=== PATIENT | female | born 1945 | race Caucasian/White ===

== ENCOUNTER 2020-09-27 10:50 | Emergency (ER) | payer MEDICARE, OTHER ==
--- NOTE | 2020-09-27 11:14 | EDM.PDOC ---
ED HPI GENERAL MEDICAL PROBLEM - General Chief Complaint: Lower Extremity Injury/Pain Stated Complaint: LOST TOENAIL THIS MORN WANTS IT LOOKED AT Time Seen by Provider: 09/27/20 11:00 Source of Information: Reports: Patient, Family History Limitations: Reports: No Limitations - History of Present Illness INITIAL COMMENTS - FREE TEXT/NARRATIVE: 75-year-old female presents to the ED for evaluation of injury to her right great toe that occurred about 10 days ago. The toenail came off completely this morning with active bleeding from the nail matrix on both medial and lateral sides. She states she had an ingrown toenail and stepped in a hole outside her home 10 days ago injuring the toe and the toenail. There was extensive soft tissue bleeding into the entire toe which is just turned black at this time. She is currently on her last tablet of cephalexin 500 mg which she has been taking 3 times daily. She has active bleeding from both medial and lateral nail beds and this is the reason she came to the ED. She has an appointment with predatory animal hunter Dr. Bah tomorrow. Of note the patient is a type II diabetic and controlled with Metformin. Onset: Today (Toenail fell off today but the initial injury to the right great toe was days ago when she stepped in a hole outside her home injuring the toe with hematoma formation) Onset Date: 09/27/20 (Great toenail came off earlier this morning.) Duration: Hour(s): Location: Reports: Lower Extremity, Right (Spontaneous avulsion of right great toenail after initial injury to the right great toe 10 to 12 days ago.) Quality: Reports: Other (Oozing of blood from lateral and medial aspects of the) Severity: Mild (nail matrix.) Improves with: Reports: None Worsens with: Reports: None Context: Reports: Trauma (Suffered initial trauma to the right great toe when she stepped in a hole in her backyard about 10--12 days ago. The entire toe bled into the soft tissues and it is black in color. The toe itself appears gangrenous.). Denies: Activity, Exercise, Lifting, Sick Contact Associated Symptoms: Reports: No Other Symptoms Treatments K 12 PRINCIPAL: Reports: Acetaminophen - Related Data Allergies Allergy/AdvReac Type Severity Reaction Status Date / Time lisinopril AdvReac Mild Cough Verified 07/12/21 11:03 Home Meds: Home Meds Doxycycline [Vibra-Tabs] 100 mg PO Q12HR #20 tab 09/27/20 [Rx] Metoprolol Succinate 100 mg PO DAILY 09/27/20 [History] cephALEXin [Cephalexin] 500 mg PO QID 09/27/20 [History] hydroCHLOROthiazide [Hydrochlorothiazide] 25 mg PO DAILY 09/27/20 [History] metFORMIN [Glucophage] 1,000 mg PO DAILY 09/27/20 [History] Past Medical History HEENT History: Reports: Impaired Vision Cardiovascular History: Reports: Hypertension Endocrine/Metabolic History: Reports: Diabetes, Type II (Controlled with Metformin and diet) - Past Surgical History HEENT Surgical History: Reports: Cataract Surgery Social & Family History - Tobacco Use Tobacco Use Status *Q: Never Tobacco User Second Hand Smoke Exposure: No - Caffeine Use Caffeine Use: Reports: Coffee - Recreational Drug Use Recreational Drug Use: No - Living Situation & Occupation Living situation: Reports: Occupation: Employed Review of Systems - Review of Systems Review Of Systems: See Below Constitutional: Reports: No Symptoms Eyes: Reports: Glasses, Other (Does have retinal disease.) Ears: Reports: No Symptoms Nose: Reports: No Symptoms Mouth/Throat: Reports: No Symptoms Respiratory: Reports: No Symptoms Cardiovascular: Reports: Other (Chronic hypertension). Denies: Chest Pain GI/Abdominal: Reports: Other Genitourinary: Reports: Other (Occasional problems with constipation urinary frequency with occasional incontinence both stress and urge induced) Musculoskeletal: Reports: Neck Pain, Shoulder Pain, Back Pain, Joint Pain Skin: Reports: Bruising (Knees and hips at times.) Neurological: Reports: No Symptoms Psychiatric: Reports: No Symptoms ED EXAM, GENERAL - Physical Exam Exam: See Below Exam Limited By: No Limitations General Appearance: Alert, WD/WN, No Apparent Distress, Other (Temperature is 36.4 degrees. Heart rate 80 and sinus. Respiratory is 18 blood pressure markedly elevated at 192/84 I systolic hypertension pulse ox 98%) Eye Exam: Bilateral Eye: Normal Inspection (Mild blepharal pallor no scleral icterus.), PERRL Extremities: Other (Examination of her right great toes shows the entire toe to be dark black in color suggesting underlying gangrene. There is obvious bleeding into the soft tissues of the toe particularly distally that gives it a gangrenous appearance. The great toenail fell off this morning with some active bleedi) Neurological: Alert, Oriented, CN II-XII Intact, Normal Cognition Psychiatric: Normal Affect, Normal Mood Skin Exam: Warm, Dry, Other (Peers to be developing gangrene of the right great toe) Course - Vital Signs Last Recorded V/S: Last Vital Signs Temp 36.4 C 09/27/20 10:57 Pulse 80 09/27/20 10:57 Resp 18 09/27/20 10:57 BP 192/84 H 09/27/20 10:57 Pulse Ox 98 09/27/20 10:57 - Radiology Interpretation Free Text/Narrative:: 75-year-old female presents to the ED for evaluation of her right great toe. She states she suffered an injury to the toe about 10 days ago when she stepped in a hole in her backyard. She had an ingrown toenail at that time and partially avulsed the toenail with this injury. There was significant bleeding into the soft tissues of the toe and it is now dark black and colors giving and a gangrenous appearance. She has been placed on cephalexin 500 mg 3 times daily for the last 10 days as the last tablet today. Today the toenail fell off completely which is not unexpected. There was bleeding from the lateral medial matrices of the nail bed. These areas were cauterized with silver nitrate and she experienced no discomfort with this procedure. Bleeding was therefore controlled. It is my suggestion that she continue antibiotic therapy with doxycycline 100 mg twice daily for the next 10 days and a prescription was written in this regard. She has an appointment to see Dr. Bah the predatory animal hunter tomorrow which he was advised to keep. I suspect she is going to lose this toe eventually. Departure - Departure Time of Disposition: 11:12 Disposition: Home, Self-Care 01 Condition: Fair Clinical Impression: Avulsion of toenail of right foot - Discharge Information *PRESCRIPTION DRUG MONITORING PROGRAM REVIEWED*: Not Applicable *COPY OF PRESCRIPTION DRUG MONITORING REPORT IN PATIENT JAIME: Not Applicable Prescriptions: Doxycycline [Vibra-Tabs] 100 mg PO Q12HR #20 tab Referrals: Indigo Ta NP [Primary Care Provider] - Forms: ED Department Discharge Additional Instructions: Evaluation in the emergency room this morning in regards to complete loss of your right great toenail or avulsion of the nail. Initial injury to the toe was approximately 10 days ago when you stepped in a hole outside your home. The toe suffered blunt injury with excessive bleeding into the soft tissues of the toe. Today the toenail came off completely as 1 would anticipate from this type of injury. There was some active bleeding coming from both sides of the nail matrix. This area was cauterized with silver nitrate on both sides to control the bleeding. It is my suggestion that you continue antibiotic therapy. We will change up the antibiotics from cephalexin to doxycycline 100 mg twice daily for the next 10 days. This medication should not be taken with calcium or vitamin supplements. You could finish up your last tablet of cephalexin today and take your first dose of doxycycline tomorrow. Follow-up with Dr. Car predatory animal hunter tomorrow as planned. Sepsis Event Note (ED) - Evaluation Sepsis Screening Result: No Definite Risk - Focused Exam Vital Signs: Vital Signs Temp Pulse Resp BP Pulse Ox 09/27/20 10:57 36.4 C 80 18 192/84 H 98
== END 2020-09-27 11:36 | disposition home or self-care (01) ==
LOC: JD.ED 10:50
DX: S91.201A Unspecified open wound of right great toe with damage to nail, initial encounter (principal); I10 Essential (primary) hypertension; E11.9 Type 2 diabetes mellitus without complications; Z79.84 Long term (current) use of oral hypoglycemic drugs; Z88.8 Allergy status to other drugs, medicaments and biological substances; Z79.899 Other long term (current) drug therapy; W22.8XXA Striking against or struck by other objects, initial encounter; Y92.009 Unspecified place in unspecified non-institutional (private) residence as the place of occurrence of the external cause
CPT/HCPCS: 12001; 17250; 99283; 99283-25

== ENCOUNTER 2020-11-02 10:51 | Emergency (ER) | payer MEDICARE, OTHER ==
--- NOTE | 2020-11-02 11:43 | EDM.PDOC ---
ED HPI GENERAL MEDICAL PROBLEM - General Chief Complaint: Lower Extremity Injury/Pain Stated Complaint: RIGHT SIDE TOE POSSIBLE INFECTION Time Seen by Provider: 11/02/20 11:09 Source of Information: Reports: Patient, Family (son), RN Notes Reviewed History Limitations: Reports: No Limitations - History of Present Illness INITIAL COMMENTS - FREE TEXT/NARRATIVE: Patient is a 75-year-old female who presents to the ER for the evaluation of a possible right great toe amputation site infection. Notes that she had her right great toe amputated 2 weeks ago on October 18, 2020, by Dr. Busby at [facility]. Patient notes that she finished her ciprofloxacin antibiotics, roughly 1 week ago. She has been having help with dressing changes from her son. The son states that the redness actually seems to be going down, he has not noticed any more increasing red streaks up the foot. There is some concern about some possible tunneling of the wound. Patient's not had any fevers or chills, cough or shortness of breath, she states that the amputation site is not painful. She states that she is still walking on her heel for the most part. They do not know a marked difference that would indicate that it is infected. They are worried however that it is not healing appropriately due to her diabetic status. Primary care provider is Indigo Ta, and the patient states that her diabetes is fairly uncontrolled as far she knows. - Related Data Allergies Allergy/AdvReac Type Severity Reaction Status Date / Time codeine Allergy Severe Vomiting Verified 11/02/20 11:07 lisinopril AdvReac Severe Cough Verified 11/02/20 11:07 Home Meds: Home Meds Metoprolol Succinate 100 mg PO DAILY 09/27/20 [History] hydroCHLOROthiazide [Hydrochlorothiazide] 25 mg PO DAILY 09/27/20 [History] metFORMIN [Glucophage] 1,000 mg PO DAILY 09/27/20 [History] Amoxicillin/Clavulanate K [Augmentin 875-125 MG] 1 tab PO BID #14 tablet 11/02/20 [Rx] Past Medical History HEENT History: Reports: Impaired Vision Cardiovascular History: Reports: Hypertension Musculoskeletal History: Reports: Other (See Below) Other Musculoskeletal History: 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 placed the day beofre surgery Social & Family History - Tobacco Use Tobacco Use Status *Q: Never Tobacco User - Caffeine Use Caffeine Use: Reports: Coffee, Tea - Recreational Drug Use Recreational Drug Use: No - Living Situation & Occupation Living situation: Reports: Occupation: Employed Review of Systems - Review of Systems Review Of Systems: Comprehensive ROS is negative, except as noted in HPI. ED EXAM, GENERAL - Physical Exam Exam: See Below Exam Limited By: No Limitations General Appearance: Alert, WD/WN, No Apparent Distress Respiratory/Chest: No Respiratory Distress, Lungs Clear, Normal Breath Sounds, No Accessory Muscle Use, Chest Non-Tender Cardiovascular: Normal Peripheral Pulses, Regular Rate, Rhythm, No Edema Peripheral Pulses: 2+: Dorsalis Pedis (L), Dorsalis Pedis (R) Extremities: Non-Tender, No Pedal Edema, Normal Capillary Refill Neurological: Alert, Oriented, Normal Cognition, No Motor/Sensory Deficits Psychiatric: Normal Affect, Normal Mood Skin Exam: Warm, Dry, Normal Color, No Rash, Other (post surgical wound to R great toe, there is some surrounding erythema- pt son states that this has improved actually, there is maybe some tunneling of the wound noted, sutures still in place and there does appear to be some drainage from the wound as well) Course - Vital Signs Last Recorded V/S: Last Vital Signs Temp 98.3 F 11/02/20 11:12 Pulse 77 11/02/20 11:12 Resp 20 11/02/20 11:12 BP 175/74 H 11/02/20 11:12 Pulse Ox 98 11/02/20 11:12 - Orders/Labs/Meds Orders: Active Orders 24 hr Category Date Time Status CBC WITH AUTO DIFF [HEME] Stat Lab 11/02/20 11:32 Ordered Labs: Laboratory Tests 11/02/20 11/02/20 Range/Units 12:11 12:11 WBC 9.78 (3.98-10.04) K/mm3 RBC 4.06 (3.98-5.22) M/mm3 Hgb 11.5 (11.2-15.7) gm/dl Hct 35.6 (34.1-44.9) % MCV 87.7 (79.4-94.8) fl MCH 28.3 (25.6-32.2) pg MCHC 32.3 (32.2-35.5) g/dl RDW Std Deviation 45.2 (36.4-46.3) fL Plt Count 636 H (182-369) K/mm3 MPV 7.8 L (9.4-12.3) fl Neut % (Auto) 76.8 H (34.0-71.1) % Lymph % (Auto) 9.7 L (19.3-51.7) % Fisher % (Auto) 7.3 (4.7-12.5) % Eos % (Auto) 5.1 (0.7-5.8) Baso % (Auto) 0.9 (0.1-1.2) % Neut # (Auto) 7.51 H (1.56-6.13) K/mm3 Lymph # (Auto) 0.95 L (1.18-3.74) K/mm3 Fisher # (Auto) 0.71 H (0.24-0.36) K/mm3 Eos # (Auto) 0.50 H (0.04-0.36) K/mm3 Baso # (Auto) 0.09 H (0.01-0.08) K/mm3 Sodium 139 (136-145) mEq/L Potassium 3.8 (3.5-5.1) mEq/L Chloride 103 (98-107) mEq/L Carbon Dioxide 26 (21-32) mEq/L Anion Gap 13.8 (5-15) BUN 12 (7-18) mg/dL Creatinine 0.5 L (0.55-1.02) mg/dL Est Cr Clr Drug Dosing 79.18 mL/min Estimated GFR (MDRD) > 60 (>60) mL/min BUN/Creatinine Ratio 24.0 H (14-18) Glucose 128 H (70-99) mg/dL Calcium 8.1 L (8.5-10.1) mg/dL Total Bilirubin 0.7 (0.2-1.0) mg/dL AST 9 L (15-37) U/L ALT 12 L (14-59) U/L Alkaline Phosphatase 55 (46-116) U/L C-Reactive Protein <0.2 (<1.0) mg/dL Total Protein 6.6 (6.4-8.2) g/dl Albumin 2.8 L (3.4-5.0) g/dl Globulin 3.8 gm/dL Albumin/Globulin Ratio 0.7 L (1-2) - Re-Assessments/Exams Free Text/Narrative Re-Assessment/Exam: 11/02/20 11:31 Presents to the ER for evaluation of a suspect infection near a amputation site. Have ordered basic labs, and x-rays for evaluation. 11/02/20 12:31 Foot x-ray has been completed, there is soft tissue swelling with slight osteopenia within the distal first metatarsal suspicious for osteomyelitis with cellulitis. Other chronic stable findings appreciated, but no more acute findings. Labs are still pending at this time. Once I have some laboratory results, I will go ahead and consult the provider at [facility] in [place] that did the amputation. 11/02/20 12:57 Patient's laboratory evaluation is essentially unremarkable, CBC is within normal limits, CMP also within normal limits, CRP undetectably low at this time. I am in contact with [facility] in [place] at this time to discuss the possible early osteomyelitis and overlying cellulitis. 11/02/20 13:11 I was able to speak with the Dr. Velazco at [facility] in [place], and he was able to review the x-rays, and operative notes, and he suggested placing patient on oral antibiotics Augmentin, continue wound management as previously directed he does note that the patient has a follow-up appoint with Dr. Busby on November 09, and she should keep that appointment. I did go over these findings with the patient and they verbalized understanding at this time. Departure - Departure Time of Disposition: 13:12 Disposition: Home, Self-Care 01 Condition: Good Clinical Impression: Amputation stump infection, Cellulitis and abscess of foot - Discharge Information *PRESCRIPTION DRUG MONITORING PROGRAM REVIEWED*: No *COPY OF PRESCRIPTION DRUG MONITORING REPORT IN PATIENT JAIME: No Instructions: Cellulitis, Adult, [id number] Referrals: Indigo Ta NP [Primary Care Provider] - Forms: ED Department Discharge Additional Instructions: You were evaluated in the ER today regarding a suspected skin infection. It does appear that you have a cellulitis. Your skin was marked around the borders of the redness, if this redness should extend 2 finger widths past this initial corie, recommend you seek care for re-evaluation. X-rays were taken of the area, and are consistent with possible early infection. You were given an antibiotic, Augmentin, 1 tablet 2 times a day for 7 days please take as prescribed until the course is done or told otherwise by different provider. Please note that this antibiotic will take at least 48 hours to start working appropriately. This medication is prone to causing diarrhea, if you are not already doing so, I highly recommend you take a digestive probiotic like Florajen to help reintroduce good gut bacteria while taking antibiotics. This medication was electronically sent to the [facility] located near [facility]. You may take 500 mg Tylenol or 600 mg ibuprofen every 6 hours as needed for further pain relief. Do not exceed 4000 mg Tylenol or 3200 mg ibuprofen in a 24-hour time span. Please keep your appointment with Dr. Busby on 09 November for reevaluation and ongoing management. Do not hesitate to return to the ER at any time however if you should develop any worsening symptoms like fevers, foul-smelling drainage, or red streaks that seem to extend further up the foot/leg. Sepsis Event Note (ED) - Focused Exam Vital Signs: Vital Signs Temp Pulse Resp BP Pulse Ox 11/02/20 11:12 98.3 F 77 20 175/74 H 98 - My Orders Last 24 Hours: My Active Orders 11/02/20 11:32 CBC WITH AUTO DIFF [HEME] Stat - Assessment/Plan Last 24 Hours: My Active Orders 11/02/20 11:32 CBC WITH AUTO DIFF [HEME] Stat
--- NOTE | 2020-11-02 12:21 | CR ---
Right foot: 4 views of the right foot were obtained. Comparison: No prior foot exam is available. Prior amputation is seen within the first toe. Diffuse soft tissue swelling is noted. There is osteopenia being seen within portions of the distal aspect of the first metatarsal which are suspicious for early osteomyelitis. Plantar spur is noted. Vascular calcification is seen. No other areas of focal osteopenia or erosions are seen. Impression: 1. Soft tissue swelling with slight osteopenia within the distal first metatarsal suspicious for osteomyelitis with cellulitis. 2. Other findings as noted above which are chronic. No other acute osseous abnormality is appreciated. Diagnostic code #3
== END 2020-11-02 13:45 | disposition home or self-care (01) ==
LOC: JD.ED 10:51
DX: T87.43 Infection of amputation stump, right lower extremity (principal); L02.611 Cutaneous abscess of right foot; L03.115 Cellulitis of right lower limb; I10 Essential (primary) hypertension; E11.9 Type 2 diabetes mellitus without complications; Z88.5 Allergy status to narcotic agent; Z88.8 Allergy status to other drugs, medicaments and biological substances; Z79.84 Long term (current) use of oral hypoglycemic drugs; Z79.899 Other long term (current) drug therapy
CPT/HCPCS: 36415; 73630-26-RT; 73630-RT; 80053; 85025; 86140; 99283-25; 99284

== ENCOUNTER 2020-11-16 18:53 | Emergency (ER) | payer MEDICARE, OTHER ==
--- NOTE | 2020-11-16 19:53 | EDM.PDOC ---
ED HPI GENERAL MEDICAL PROBLEM - General Chief Complaint: Wound Recheck Stated Complaint: RT FOOT/AMPUTATED TOE/EXCESSIVE BLEEDING Time Seen by Provider: 11/16/20 19:15 Source of Information: Reports: Patient, Family History Limitations: Reports: No Limitations - History of Present Illness INITIAL COMMENTS - FREE TEXT/NARRATIVE: 75-year-old female presents the emergency department today with complaints of bleeding status post having sutures replaced and an amputated right great toe. Patient states she had her right great toe amputated about a month ago and the family has been treating the area long enough to get the skin to close so that the toy assembler wood could place sutures. , no interest, closed the amputated right great toe today with sutures in the family is concerned that her dressings are saturated with blood. Patient does take 1 baby aspirin daily and does not take any other blood thinners. She denies any other symptoms such as dizziness or shortness of breath. - Related Data Allergies Allergy/AdvReac Type Severity Reaction Status Date / Time codeine AdvReac Severe Vomiting Verified 11/16/20 19:10 lisinopril AdvReac Severe Cough Verified 11/16/20 19:10 Home Meds: Home Meds Metoprolol Succinate 100 mg PO DAILY 09/27/20 [History] hydroCHLOROthiazide [Hydrochlorothiazide] 25 mg PO DAILY 09/27/20 [History] metFORMIN [Glucophage] 1,000 mg PO DAILY 09/27/20 [History] Amoxicillin/Clavulanate K [Augmentin 875-125 MG] 1 tab PO BID #14 tablet 11/02/20 [Rx] Past Medical History HEENT History: Reports: Impaired Vision Cardiovascular History: Reports: Hypertension Musculoskeletal History: Reports: Other (See Below) Other Musculoskeletal History: 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 placed the day beofre surgery Social & Family History - Tobacco Use Tobacco Use Status *Q: Never Tobacco User Second Hand Smoke Exposure: No - Caffeine Use Caffeine Use: Reports: Coffee, Tea - Recreational Drug Use Recreational Drug Use: No - Living Situation & Occupation Living situation: Reports: Occupation: Employed Review of Systems - Review of Systems Review Of Systems: Comprehensive ROS is negative, except as noted in HPI. ED EXAM, GENERAL - Physical Exam Exam: See Below Exam Limited By: No Limitations General Appearance: Alert, WD/WN, No Apparent Distress Ears: Normal External Exam, Hearing Grossly Normal Nose: Normal Inspection Throat/Mouth: Normal Inspection, Normal Lips, Normal Voice, No Airway Compromise Head: Atraumatic Neck: Normal Inspection, Supple Respiratory/Chest: No Respiratory Distress, No Accessory Muscle Use Cardiovascular: Normal Peripheral Pulses, Regular Rate, Rhythm GI/Abdominal: No Distention (Female) Exam: Deferred Rectal (Female) Exam: Deferred Back Exam: Normal Inspection Extremities: No: Normal Inspection (amputation noted to right great toe; sutures are intact; minimal blood oozing from suture site) Neurological: Alert, Oriented, Normal Cognition Psychiatric: Normal Affect, Normal Mood Skin Exam: Warm, Dry, Normal Color, No Rash, Wound/Incision (amputation noted to right great toe; sutures are intact; minimal blood oozing from suture site). No: Intact Lymphatic: No Adenopathy Course - Vital Signs Text/Narrative:: As stated above presents with blood soaked dressing of right foot status post revision of amputation. Dressing was removed using saline to soak gauze. Suture site is pink, and clean. There is a small amount of bloody drainage noted oozing from suture site. Will apply quick clot dressing to the area and replace dressing per nursing staff. Pt will then be discharged to home. Last Recorded V/S: Last Vital Signs Temp 97.3 F 11/16/20 19:02 Pulse 83 11/16/20 19:02 Resp 16 11/16/20 19:02 BP 181/75 H 11/16/20 19:02 Pulse Ox 92 L 11/16/20 19:02 Departure - Departure Time of Disposition: 20:06 Disposition: Home, Self-Care 01 Condition: Good Clinical Impression: Post-op bleeding Qualifiers: Surgical complication system/body Area: skin Procedure type: non-dermatologic Qualified Code(s): L76.22 - Postprocedural hemorrhage of skin and subcutaneous tissue following other procedure - Discharge Information Referrals: Indigo Ta NP [Primary Care Provider] - Forms: ED Department Discharge Additional Instructions: You were seen in the ED for eval of bleeding noted to right great toe amputation. Dressing was removed and a small amount of blood was oozing from surgical incision. Quick clot was placed on the wound and this should resolve the bleeding. Follow all previous post op orders as written by Dr. Zavaleta. Return to the ED for any further problems. Sepsis Event Note (ED) - Evaluation Sepsis Screening Result: No Definite Risk - Focused Exam Vital Signs: Vital Signs Temp Pulse Resp BP Pulse Ox 11/16/20 19:02 97.3 F 83 16 181/75 H 92 L
== END 2020-11-16 20:24 | disposition home or self-care (01) ==
LOC: JD.ED 18:53
DX: L76.22 Postprocedural hemorrhage of skin and subcutaneous tissue following other procedure (principal); I10 Essential (primary) hypertension; E11.9 Type 2 diabetes mellitus without complications; Z79.84 Long term (current) use of oral hypoglycemic drugs; Z88.5 Allergy status to narcotic agent; Z88.8 Allergy status to other drugs, medicaments and biological substances; Z79.899 Other long term (current) drug therapy
CPT/HCPCS: 99282; 99283

== ENCOUNTER 2021-01-06 16:17 | Inpatient (IN) | payer MEDICARE, OTHER ==
--- NOTE | 2021-01-06 16:28 | EDM.PDOC ---
ED HPI GENERAL MEDICAL PROBLEM - General Chief Complaint: Respiratory Problem Stated Complaint: SOB Time Seen by Provider: 01/06/21 18:50 Source of Information: Reports: Patient, Provider History Limitations: Reports: No Limitations - History of Present Illness INITIAL COMMENTS - FREE TEXT/NARRATIVE: 75-year-old female presents to the ED at the request of her primary care provi jessica nurse practitioner Shreya Ta from the [facility]. Patient presented there with a 3-day history of gradually worsening dyspnea. O2 sats were 93% on initial evaluation. Chest x-ray done at the clinic revealed a large right-sided pleural effusion which apparently is new for her. Denies any history of congestive heart failure or renal failure or cancer. Patient is a type II diabetic poorly controlled with a hemoglobin A1c today of 12.1. There is no mention of cough. COVID-19 screen was negative today. Patient has had previous endarterectomy and is on Plavix 75 mg daily. White count today was 12.2 with a differential showing 80% neutrophils. Hemoglobin slightly low at 11.6 with hematocrit of 33.2. MCV is 82.4. Platelet count is 361,000. Glucose was elevated 149 with a BUN of 9 and a creatinine of 0.62. Sodium 131 with a potassium of 3.8 chloride 97 with a bicarb of 25. Cholesterol reveals hypertriglyceridemia. Gives no history of underlying malignancy or diagnosis of congestive heart failure. COVID-19 screen was done at the clinic today and was negative. Onset: Gradual Onset Date: 01/03/21 (And reports gradually worsening dyspnea over the last month but it was improved for about a week and then seemed to get much worse again over the last 3 to 4 days. She has associated orthopnea. Mild nonproductive cough no pleuritic chest pain. Dyspnea just walking from the bedroom to the bathroom.) Duration: Day(s):, Getting Worse Location: Reports: Chest (Shortness of breath on minimal exertion with orthopnea) Quality: Reports: Other (No pain in the chest.) Severity: Moderate Improves with: Reports: Rest Worsens with: Reports: Movement (Even mild movement such as walking from the bedroom to the bathroom which is 15 yards causes significant dyspnea) Context: Denies: Activity, Exercise, Lifting, Sick Contact, Trauma, Other Associated Symptoms: Reports: Cough, Malaise (Productive), Shortness of Breath, Weakness. 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: Other (see below) - Related Data Allergies Allergy/AdvReac Type Severity Reaction Status Date / Time codeine AdvReac Severe Vomiting Verified 01/06/21 16:47 lisinopril AdvReac Severe Cough Verified 01/06/21 16:47 Home Meds: Home Meds Metoprolol Succinate 100 mg PO DAILY 09/27/20 [History] hydroCHLOROthiazide [Hydrochlorothiazide] 25 mg PO DAILY 09/27/20 [History] metFORMIN [Glucophage] 1,000 mg PO DAILY 09/27/20 [History] Amoxicillin/Clavulanate K [Augmentin 875-125 MG] 1 tab PO BID #14 tablet [Rx] Past Medical History HEENT History: Reports: Impaired Vision Cardiovascular History: Reports: Hypertension Musculoskeletal History: Reports: Other (See Below) Other Musculoskeletal History: 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 Very poor diabetic control with a glycosylated hemoglobin reported today to be 12.1.Jan 06) - Past Surgical History HEENT Surgical History: Reports: Cataract Surgery Cardiovascular Surgical History: Reports: Other (See Below) Other Cardiovascular Surgeries/Procedures: stent to groin 2; pt on plavix. placed the day beofre surgery Female Surgical History: Reports: Hysterectomy, Salpingo-Oophorectomy (Bilateral), Other (See Below) (He is not sure if her appendix was removed at the time of hysterectomy) Social & Family History - Caffeine Use Caffeine Use: Reports: Coffee, Tea - Living Situation & Occupation Living situation: Reports: Occupation: Employed [employer] - Review of Systems Review Of Systems: See Below Constitutional: Reports: Malaise, Fatigue, Decreased Appetite, Weight Loss. Denies: Fever, Chills HEENT: Reports: Glasses Respiratory: Reports: Shortness of Breath, Cough. Denies: Wheezing, Pleuritic Chest Pain, Sputum, Hemoptysis, Other (Nonproductive) Cardiovascular: Reports: Blood Pressure Problem, Dyspnea on Exertion (Markedly worse in the last week), Edema (Increased edema lower extremities recently worse). Denies: Chest Pain, Claudication, Lightheadedness, Orthopnea Endocrine: Reports: Fatigue GI/Abdominal: Reports: Constipation (Mild constipation), Decreased Appetite. Denies: Abdominal Pain : Reports: Frequency Musculoskeletal: Reports: Back Pain, Joint Pain (Mild arthritis knees hips low back and neck at times) Skin: Reports: No Symptoms Neurological: Reports: No Symptoms Psychiatric: Reports: No Symptoms Hematologic/Lymphatic: Reports: No Symptoms Immunologic: Reports: No Symptoms ED EXAM, GENERAL - Physical Exam Exam: See Below Exam Limited By: No Limitations General Appearance: Alert, WD/WN, Mild Distress, Thin, Other (Looks unwell. Temperature is 36.6. Heart rate 91 and sinus respiratory is 20 with O2 sats of 92% room air. BP is 180/86) Eye Exam: Bilateral Eye: Normal Inspection (Mild blepharal pallor appreciated. No scleral icterus), PERRL Throat/Mouth: Normal Inspection, Normal Lips, Normal Oropharynx Head: Atraumatic, Normocephalic Neck: Normal Inspection, Supple, Non-Tender, Full Range of Motion. No: Carotid Bruit, Lymphadenopathy (L), Lymphadenopathy (R) Respiratory/Chest: Respiratory Distress, Decreased Breath Sounds (Decreased breath sounds throughout the right lung field with dullness to percussion posteriorly. Air entry to the left lung is normal.). No: Normal Breath Sounds (Mild tachypnea.), Rales, Rhonchi, Wheezing Cardiovascular: Regular Rate, Rhythm, No Gallop, No Murmur, No Rub. No: Normal Peripheral Pulses, No Edema Peripheral Pulses: 1+: Posterior Tibial (L), Posterior Tibial (R), Dorsalis Pedis (L), Dorsalis Pedis (R), 2+: Carotid (L), Carotid (R) GI/Abdominal: Normal Bowel Sounds, Soft, Non-Tender, No Organomegaly, No Mass, Pelvis Stable, Distended (Mildly distended tympany to percussion upper abdomen) Back Exam: Other (Mild kyphosis thoracic spine) Extremities: Pedal Edema (2-3+ pitting edema mid to lower leg bilaterally.) Neurological: Alert, Oriented, CN II-XII Intact, Normal Cognition Psychiatric: Normal Affect, Normal Mood Skin Exam: Warm, Dry, Intact, Normal Color, No Rash #1 Interpretation EKG Date: 01/06/21 Time: 20:55 Rhythm: NSR Rate (Beats/Min): 94 Douglas: Normal P-Wave: Enlarged (Left atrial hypertrophy pattern) QRS: Other (Q waves present in leads V1 and V2 compared with old anteroseptal myocardial infarction) ST-T: Other (There is ST segment depression versus diffuse repolarization abnormality apparently in V4 to V6 also apparent in leads I beats to and aVF. There is decreased voltage in the limb leads.) QT: Normal EKG Interpretation Comments: Abnormal ECG Course - Vital Signs Last Recorded V/S: Last Vital Signs Temp 36.6 C 01/06/21 16:40 Pulse 91 01/06/21 16:40 Resp 20 01/06/21 16:40 BP 180/86 H 01/06/21 16:40 Pulse Ox 92 L 01/06/21 16:40 - Orders/Labs/Meds Orders: Active Orders 24 hr Category Date Time Status EKG Documentation Completion [RC] STAT Care 01/06/21 20:45 Active Oxygen Therapy [RC] ASDIRECTED Care 01/06/21 17:03 Active Peripheral IV Care [RC] . DIRECTED Care 01/06/21 16:49 Active Chest Abdomen Pelvis w Cont [CT] Stat Exams 01/06/21 19:30 Taken CELL COUNT,BODY FLUID [BF] Stat Lab 01/06/21 19:05 Results GLUCOSE,BODY FLUID [BF] Stat Lab 01/06/21 19:05 Received GRAM STAIN [RM] Stat Lab 01/06/21 19:05 Received PROTEIN,BODY FLUID [BF] Stat Lab 01/06/21 19:05 Received Furosemide [Lasix] Med 01/06/21 20:30 Active 40 mg IVPUSH DAILY Sodium Chloride 0.9% [Normal Saline] 1,000 ml Med 01/06/21 20:30 Active IV ASDIRECTED Sodium Chloride 0.9% [Saline Flush] Med 01/06/21 16:49 Active 10 ml FLUSH ASDIRECTED PRN Peripheral IV Insertion Adult [OM.PC] Stat Oth 01/06/21 16:49 Ordered Medication Orders Furosemide (Furosemide 40 Mg/4 Ml Vial) 40 mg IVPUSH DAILY JENNY Sodium Chloride (Normal Saline) 1,000 mls @ 50 mls/hr IV ASDIRECTED JENNY Sodium Chloride (Sodium Chloride 0.9% 10 Ml Syringe) 10 ml FLUSH ASDIRECTED PRN PRN Reason: Keep Vein Open Last Admin: 01/06/21 18:48 Dose: 10 ml Documented by: YELENA Labs: Laboratory Tests 01/06/21 01/06/21 01/06/21 Range/Units 18:24 19:00 19:00 WBC 9.90 (3.98-10.04) K/mm3 RBC 5.15 (3.98-5.22) M/mm3 Hgb 13.6 D (11.2-15.7) gm/dl Hct 40.3 (34.1-44.9) % MCV 78.3 L D (79.4-94.8) fl MCH 26.4 (25.6-32.2) pg MCHC 33.7 (32.2-35.5) g/dl RDW Std Deviation 42.0 (36.4-46.3) fL Plt Count 837 H D (182-369) K/mm3 MPV 7.8 L (9.4-12.3) fl Neut % (Auto) 80.2 H (34.0-71.1) % Lymph % (Auto) 9.2 L (19.3-51.7) % [place] % (Auto) 8.5 (4.7-12.5) % Eos % (Auto) 1.3 (0.7-5.8) Baso % (Auto) 0.6 (0.1-1.2) % Neut # (Auto) 7.94 H (1.56-6.13) K/mm3 Lymph # (Auto) 0.91 L (1.18-3.74) K/mm3 [place] # (Auto) 0.84 H (0.24-0.36) K/mm3 Eos # (Auto) 0.13 (0.04-0.36) K/mm3 Baso # (Auto) 0.06 (0.01-0.08) K/mm3 Manual Slide Review Abnormal smear PT (9.7-12.0) SECONDS INR APTT (21.7-31.4) SECONDS Sodium 127 L D (136-145) mEq/L Potassium 3.4 L (3.5-5.1) mEq/L Chloride 91 L D (98-107) mEq/L Carbon Dioxide 29 (21-32) mEq/L Anion Gap 10.4 (5-15) BUN 9 (7-18) mg/dL Creatinine 0.4 L (0.55-1.02) mg/dL Est Cr Clr Drug Dosing 109.67 mL/min Estimated GFR (MDRD) > 60 (>60) mL/min BUN/Creatinine Ratio 22.5 H (14-18) Glucose 142 H (70-99) mg/dL Calcium 8.8 (8.5-10.1) mg/dL Magnesium 1.5 L (1.8-2.4) mg/dL Total Bilirubin 0.6 (0.2-1.0) mg/dL AST 13 L (15-37) U/L ALT 18 (14-59) U/L Alkaline Phosphatase 103 (46-116) U/L Troponin I < 0.017 (0.00-0.056) ng/mL C-Reactive Protein 1.0 (<1.0) mg/dL NT-Pro-B Natriuret Pep 7127 H (0-450) pg/mL Total Protein 6.8 (6.4-8.2) g/dl Albumin 3.0 L (3.4-5.0) g/dl Globulin 3.8 gm/dL Albumin/Globulin Ratio 0.8 L (1-2) Lipase (73-393) U/L Body Fluid Site Fluid Volume ML Fluid Color Fluid Appearance Fluid WBC (0.20-0.60) k/mm*3 Fluid RBC (0.00-0.010) 10*6/uL 01/06/21 01/06/21 01/06/21 Range/Units 19:00 19:00 19:05 WBC (3.98-10.04) K/mm3 RBC (3.98-5.22) M/mm3 Hgb (11.2-15.7) gm/dl Hct (34.1-44.9) % MCV (79.4-94.8) fl MCH (25.6-32.2) pg MCHC (32.2-35.5) g/dl RDW Std Deviation (36.4-46.3) fL Plt Count (182-369) K/mm3 MPV (9.4-12.3) fl Neut % (Auto) (34.0-71.1) % Lymph % (Auto) (19.3-51.7) % [place] % (Auto) (4.7-12.5) % Eos % (Auto) (0.7-5.8) Baso % (Auto) (0.1-1.2) % Neut # (Auto) (1.56-6.13) K/mm3 Lymph # (Auto) (1.18-3.74) K/mm3 [place] # (Auto) (0.24-0.36) K/mm3 Eos # (Auto) (0.04-0.36) K/mm3 Baso # (Auto) (0.01-0.08) K/mm3 Manual Slide Review PT 11.8 (9.7-12.0) SECONDS INR 1.07 APTT 26.8 (21.7-31.4) SECONDS Sodium (136-145) mEq/L Potassium (3.5-5.1) mEq/L Chloride (98-107) mEq/L Carbon Dioxide (21-32) mEq/L Anion Gap (5-15) BUN (7-18) mg/dL Creatinine (0.55-1.02) mg/dL Est Cr Clr Drug Dosing mL/min Estimated GFR (MDRD) (>60) mL/min BUN/Creatinine Ratio (14-18) Glucose (70-99) mg/dL Calcium (8.5-10.1) mg/dL Magnesium (1.8-2.4) mg/dL Total Bilirubin (0.2-1.0) mg/dL AST (15-37) U/L ALT (14-59) U/L Alkaline Phosphatase (46-116) U/L Troponin I (0.00-0.056) ng/mL C-Reactive Protein (<1.0) mg/dL NT-Pro-B Natriuret Pep (0-450) pg/mL Total Protein (6.4-8.2) g/dl Albumin (3.4-5.0) g/dl Globulin gm/dL Albumin/Globulin Ratio (1-2) Lipase 74 (73-393) U/L Body Fluid Site Pleural fluid Fluid Volume 24 ML Fluid Color Yellow Fluid Appearance Clear Fluid WBC 0.30 (0.20-0.60) k/mm*3 Fluid RBC (0.00-0.010) 10*6/uL Meds: Medications Generic Name Dose Route Start Last Admin Trade Name Freq PRN Reason Stop Dose Admin Furosemide 40 mg 01/06/21 20:30 Furosemide 40 Mg/4 Ml Vial IVPUSH DAILY JENNY Sodium Chloride 1,000 mls @ 50 mls/hr 01/06/21 20:30 Normal Saline IV ASDIRECTED JENNY Sodium Chloride 10 ml 01/06/21 16:49 01/06/21 18:48 Sodium Chloride 0.9% 10 Ml Syringe FLUSH 10 ml ASDIRECTED PRN Administration Keep Vein Open Discontinued Medications Generic Name Dose Route Start Last Admin Trade Name Freq PRN Reason Stop Dose Admin Fentanyl 50 mcg 01/06/21 18:25 01/06/21 18:40 Fentanyl 100 Mcg/2 Ml Sdv IVPUSH 01/06/21 18:26 25 mcg ONETIME ONE Administration Iopamidol 100 ml 01/06/21 20:11 01/06/21 20:12 Iopamidol 612 Mg/Ml 100 Ml Bottle IVPUSH 01/06/21 20:12 100 ml ONETIME ONE Administration Iopamidol 25 ml 01/06/21 20:11 01/06/21 20:12 Iopamidol 612 Mg/Ml 50 Ml Sdv IVPUSH 01/06/21 20:12 25 ml ONETIME ONE Administration Lidocaine/Epinephrine 20 ml 01/06/21 17:07 01/06/21 18:45 Lidocaine 1% With Epinephrine 1:100,000 20 Ml Mdv INJECT 01/06/21 17:08 20 ml ONETIME ONE Administration Midazolam HCl 1 mg 01/06/21 18:26 01/06/21 18:37 Midazolam 1 Mg/Ml 2 Ml Sdv IVPUSH 01/06/21 18:27 1 mg ONETIME ONE Administration Sodium Chloride 10 ml 01/06/21 20:11 01/06/21 20:12 Sodium Chloride 0.9% 10 Ml Syringe FLUSH 01/06/21 20:12 10 ml ONETIME ONE Administration - Radiology Interpretation Free Text/Narrative:: 75-year-old female presents to the ED at the request of her primary care provider due to discovery of a large right-sided pleural effusion on chest x-ray today. Patient presented to the clinic due to increased dyspnea over the last 3 to 4 days. Perhaps even longer. It has become much worse over the last 3 days with associated orthopnea. Nonproductive cough. Patient is quite frail. Exam confirms dullness to percussion right posterior lung field due to a large pleural effusion. She has no history of known cancer. She is known peripheral vascular disease having had stents placed at both femoral arteries in the past. She is on Plavix because of this. Plan she will have a saline lock started other labs to be done including a BNP serum magnesium and lipase. It appears due to her proxy is she is going to require thoracentesis. At present there is no beds available in our hospital. - Re-Assessments/Exams Free Text/Narrative Re-Assessment/Exam: 01/06/21 18:50: Right-sided thoracentesis has been performed with removal of approximately 2000 mils of slightly yellow annmarie-colored fluid compatible with a pleural effusion. It will be sent for cytology as well as Gram stain and culture. Patient tolerated the procedure very well. She will have CT scan of the chest abdomen and pelvis performed when she is feeling better to look for an occult malignancy in the abdomen or chest. 01/06/21 20:22 Total white count is 9.90 with a 80% neutrophil count on the auto differential. Hemoglobin is 13.6 with hematocrit of 40.3. MCV is 78.3. Platelet count 837,000 which is markedly elevated and suggestive of underlying malignancy. Sodium is low at 127 with potassium of 3.4. Chloride 91 with a bicarb of 29. Anion gap is 10.4. BUN is 9 with a creatinine of 0.4 and a GFR greater than 60. Glucose is 142 calcium is 8.8 magnesium is 1.5 lightly low. Liver function is normal troponin I is less than 0.017. C-reactive protein is 1.0 BNP is 7127. Total protein is 6.8 with an albumin fraction low at 3.0. Serum lipase normal at 74 01/06/21 20:38 formal reading of the CT of her chest abdomen pelvis is not yet available by radiology. On my evaluation she has mild cardiomegaly. Mediastinum appears normal. She does have bilateral pleural effusion slightly worse on the right side as compared to the left. The right lung on lung window studies still shows that it is full of fluid within the parenchyma of the lung explaining why she remains hypoxic. There is trace pneumothorax on the right side postthoracentesis. CT of the abdomen with IV contrast reveals the liver to have an abnormality in the right lower lobe at the tip. Could also represent an infarction. However this most likely represents a hemangioma which is benign. Gallbladder is present and contains no obvious calcified gallstones. Pancreas is atrophic and appears to be normal. Spleen appears normal. Stomach appears normal. Both kidneys are atrophic. Adrenal glands appear to be within normal limits. Bowel contains scattered amount of stool uterus and ovaries are absent. Appendix was not visualized. No obvious fluid within the pelvis. Case discussed with on-call hospitalist Dr. Wallace and the patient will be therefore admitted to the hospital for management of suspect congestive heart failure. I will going to place her on IV normal saline at 50 mils an hour to help correct her hyponatremia. She will be given Lasix 40 mg IV to begin diuresis to help correct congestive heart failure. Her hemoglobin A1c was 12.1 indicating her blood sugars are very poorly controlled on current Metformin 1 g once daily. She may well need to switch to insulin or other medications to control blood sugars. Bridge orders will be written for by me for overnight management. Status is full code or level 1. Departure - Departure Time of Disposition: 20:43 Disposition: Admitted As Inpatient 65 Condition: Fair Clinical Impression: Pleural effusion, right, Pleural effusion, left, Hypoxia, Lesion of right lobe of liver, Thrombocytosis Acute exacerbation of congestive heart failure Qualifiers: Heart failure type: unspecified Qualified Code(s): I50.9 - Heart failure, unspecified - Discharge Information *PRESCRIPTION DRUG MONITORING PROGRAM REVIEWED*: Not Applicable *COPY OF PRESCRIPTION DRUG MONITORING REPORT IN PATIENT JAIME: Not Applicable Referrals: Indigo Ta NP [Primary Care Provider] - Forms: ED Department Discharge Sepsis Event Note (ED) - Focused Exam Vital Signs: Vital Signs Temp Pulse Resp BP Pulse Ox 01/06/21 16:40 36.6 C 91 20 180/86 H 92 L - My Orders Last 24 Hours: My Active Orders 01/06/21 16:49 Peripheral IV Care [RC] . DIRECTED Sodium Chloride 0.9% [Saline Flush] 10 ml FLUSH ASDIRECTED PRN Peripheral IV Insertion Adult [OM.PC] Stat 01/06/21 17:03 Oxygen Therapy [RC] ASDIRECTED 01/06/21 19:05 CELL COUNT,BODY FLUID [BF] Stat GLUCOSE,BODY FLUID [BF] Stat GRAM STAIN [RM] Stat PROTEIN,BODY FLUID [BF] Stat 01/06/21 19:30 Chest Abdomen Pelvis w Cont [CT] Stat 01/06/21 20:30 Furosemide [Lasix] 40 mg IVPUSH DAILY Sodium Chloride 0.9% [Normal Saline] 1,000 ml IV ASDIRECTED 01/06/21 20:45 EKG Documentation Completion [RC] STAT - Assessment/Plan Last 24 Hours: My Active Orders 01/06/21 16:49 Peripheral IV Care [RC] . DIRECTED Sodium Chloride 0.9% [Saline Flush] 10 ml FLUSH ASDIRECTED PRN Peripheral IV Insertion Adult [OM.PC] Stat 01/06/21 17:03 Oxygen Therapy [RC] ASDIRECTED 01/06/21 19:05 CELL COUNT,BODY FLUID [BF] Stat GLUCOSE,BODY FLUID [BF] Stat GRAM STAIN [RM] Stat PROTEIN,BODY FLUID [BF] Stat 01/06/21 19:30 Chest Abdomen Pelvis w Cont [CT] Stat 01/06/21 20:30 Furosemide [Lasix] 40 mg IVPUSH DAILY Sodium Chloride 0.9% [Normal Saline] 1,000 ml IV ASDIRECTED 01/06/21 20:45 EKG Documentation Completion [RC] STAT Thoracentesis - Thoracentesis Thoracentesis Indication: pleural effusion Location: Right Skin prep: CDC/MBT Guidelines, Sterile Drapes, Chlorhexidine Ultrasound guided: No Local anesthesia: other (Lidocaine 1% with epinephrine) Local anesthesia volume: 10cc Number of Attempts: 1 Device Used: 8 Fr kit device Fluid: yellow Aspirated volume (mls): 2,000 Fluids sent: gram stain and culture, cell count, protein, glucose, cytology
[2021-01-06] MEDS ORDERED: Sodium Chloride 0.9% 10 ML Syringe FLUSH PRN (16:49)
[2021-01-06] MEDS ORDERED: Lidocaine 1% with EPINEPHrine 1:100,000 20 ML MDV INJECT ONE (17:07)
[2021-01-06] MEDS ORDERED: fentaNYL 100 MCG/2 ML SDV IVPUSH ONE (18:25)
[2021-01-06] MEDS ORDERED: Midazolam 1 MG/ML 2 ML SDV IVPUSH ONE (18:26)
[2021-01-06] MEDS ORDERED: Sodium Chloride 0.9% 10 ML Syringe FLUSH ONE (20:11)
[2021-01-06] MEDS ORDERED: Iopamidol 612 MG/ML 100 ML Bottle IVPUSH ONE (20:11)
[2021-01-06] MEDS ORDERED: Iopamidol 612 MG/ML 50 ML SDV IVPUSH ONE (20:11)
[2021-01-06] MEDS ORDERED: Sodium Chloride 0.9% 1,000 ML IV SCH ×2 (20:30→22:15)
[2021-01-06] MEDS: Furosemide 40 MG/4 ML VIAL IVPUSH SCH (21:08)
--- NOTE | 2021-01-07 07:11 | CT ---
CT chest Technique: Multiple axial sections were obtained from above the lung apices inferiorly through the lung bases. Intravenous contrast was utilized. Reconstructed coronal and sagittal images were obtained. Comparison: No prior chest imaging is available. Findings: Patchy areas of increased density are seen within the right lower lung, right middle lobe and right upper lobe. Left lung shows no acute parenchymal change. Moderate sized bilateral pleural effusions are noted. Minimal air is seen within the pleural space anteriorly within the right lung base. Very minimal emphysematous change is noted. Scattered mediastinal lymph nodes are seen which are felt to be within normal limits. No axillary adenopathy is seen. No hilar adenopathy is seen. No pericardial thickening is seen. Bone window settings were reviewed which show no acute osseous abnormality. Impression: 1. Moderate bilateral pleural effusions. 2. Patchy increased density within the right lower lung, right middle lobe and right upper lung presumably due to diffuse pneumonia. 3. Very minimal pneumothorax is noted anteriorly within the right lung base. 4. No additional abnormality is appreciated. Diagnostic code #3 I agree with preliminary report from [facility], finalized on 01/06/21, 10:00 PM CDT, code 1 CT abdomen and pelvis Technique: Multiple axial sections were obtained from above the dome of the diaphragm inferiorly through the pubic symphysis. Intravenous contrast was utilized. No oral contrast has been given. Two delayed images were also obtained. Reconstructed coronal and sagittal images were also obtained. Comparison: No prior abdominal or pelvic imaging is available. Findings: Very minimal low density lesion is seen within the upper right lobe of the liver measuring 2 mm. Smaller nodule is also noted next to the gallbladder measuring 4 mm. These are most likely due to small cysts. Abnormality is identified inferiorly within the right lobe of the liver measuring about 3.1 cm which has the appearance of a hemangioma. Small abnormality is noted within the gallbladder measuring 5 mm. This could represent a noncalcified gallstone or gallbladder polyp. Spleen size is normal. Adrenal glands show no nodule. Kidneys show symmetric contrast enhancement. No hydronephrosis or mass is seen. Delayed images show contrast within the ureters and within the bladder. Pancreas shows no discrete abnormality. Aorta shows diffuse atherosclerotic calcification which continues into the iliac vessels. No aneurysm is seen. No retroperitoneal adenopathy or mesenteric abnormalities are seen. Small amount of fluid is seen within the pelvis. Minimal diverticuli are seen within the sigmoid colon. Appendix is not visualized with certainty. No inflammatory change is seen. Bone window settings were reviewed which show scoliosis within the spine. Mild degenerative change is also noted within the spine. Impression: 1. Liver findings as noted above which are most likely incidental. 2. Minimal fluid within the pelvis. 3. Other findings as noted above which are felt to be chronic. Nothing acute is otherwise seen on CT study of the abdomen and pelvis. Diagnostic code #2 I agree with preliminary report from [facility], finalized on 01/06/21, 10:00 PM CDT, code 1
[2021-01-07] MEDS: Metoprolol Succinate 50 MG Tab.ER PO SCH (08:33)
[2021-01-07] MEDS: Furosemide 40 MG/4 ML VIAL IVPUSH SCH ×2 (08:34→15:09)
--- NOTE | 2021-01-07 08:49 | PCM.HP.2 ---
H&P History of Present Illness - General Date of Service: 01/07/21 Admit Problem/Dx: Admission Diagnosis/Problem Admission Diagnosis/Problem Pleural effusion - History of Present Illness Initial Comments - Free Text/Narative: 75-year-old poor historian presents to the emergency department last night after being seen at her primary care provider's office, Shreya Ta, with worsening shortness of breath. Patient was diagnosed with COVID-19 pneumonia approximately 3 weeks ago and started on O2. She was on 2 L via nasal cannula and her oxygen saturations were dropping into the 70s. Patient was found to hav e a large right-sided pleural effusion and was sent to the emergency department. When she was initially seen in the ER her oxygen saturations were approximately 93%. Patient states that she has never had an effusion in the past and has no history of heart disease or failure. She does have type 2 diabetes, insulin- dependent. She is on Metformin 1000 mg twice daily. In the emergency department her COVID-19 screen was negative. She did have the right sided pleural effusion tapped removing approximately 2000 mL of slightly yellow, annmarie-colored fluid. This was sent for Gram stain which was negative and cytology. Of note her BNP was 7127. CT of the chest was performed following thoracentesis. Impression showed continued bilateral moderate pleural effusions. Patchy increased density within the right lower lung, right middle lobe, and right upper lung presumably due to diffuse pneumonia. Very minimal pneumothorax noted anteriorly within the right lung base. CT scan of the abdomen pelvis showed a very minimal low density lesion seen within the upper right lobe of the liver measuring 2 mm. Small nodule is also noted next to the gallbladder measuring 4 mm. These are likely simple cysts. Another lesion that looks like a hemangioma measuring 3.1 cm in the right lobe of the liver. Minimal fluid within the pelvis. It was felt patient would benefit from hospitalization and further work-up and treatment of her congestive heart failure. She was given Lasix 40 mg IV in the emergency department and started on normal saline secondary to her hyponatremia of 127. Patient also states that she has a stent in her right leg and amputation on the same side sometime in the first week of November. - Related Data Allergies/Adverse Reactions: Allergies Allergy/AdvReac Type Severity Reaction Status Date / Time codeine AdvReac Intermediate Vomiting Verified 01/07/21 12:04 lisinopril AdvReac Mild Cough Verified 01/07/21 12:04 Home Medications: Home Meds metFORMIN [Glucophage] 1,000 mg PO BID 09/27/20 [History] Acetaminophen 325 mg PO Q6H PRN 01/06/21 [History] Cinnamon Bark [Cinnamon] 500 mg PO DAILY 01/06/21 [History] EPINEPHrine [Epinephrine] 0.3 mg IM ASDIRECTED PRN 01/06/21 [History] Glucosam/Chond/Collagen/Hyalur [Glucosamine Chondroitin] 1 each PO DAILY 01/06/21 [History] Magnesium Oxide 400 mg PO DAILY 01/06/21 [History] Metoprolol Succinate 100 mg PO BEDTIME 01/06/21 [History] Potassium Gluconate [Potassium] 99 mg PO DAILY 01/06/21 [History] Rosuvastatin [Crestor] 5 mg PO DAILY 01/06/21 [History] Ubidecarenone [Co Q-10] 100 mg PO DAILY 01/06/21 [History] Vitamin B Complex 1 each PO DAILY 01/06/21 [History] Vitamin E 1,000 unit PO DAILY 01/06/21 [History] hydroCHLOROthiazide [Hydrochlorothiazide] 25 mg PO BEDTIME 01/06/21 [History] Past Medical History HEENT History: Reports: Impaired Vision Cardiovascular History: Reports: Hypertension PLASTICS NURSE History: Reports: Musculoskeletal History: Reports: Other (See Below) Other Musculoskeletal History: 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 placed the day beofre surgery Female Surgical History: Reports: Hysterectomy, Salpingo-Oophorectomy, Other (See Below) Social & Family History - Family History Family Medical History: No Pertinent Family History - Tobacco Use Tobacco Use Status *Q: Never Tobacco User Second Hand Smoke Exposure: No - Caffeine Use Caffeine Use: Reports: Coffee - Recreational Drug Use Recreational Drug Use: No - Living Situation & Occupation Living situation: Reports: Occupation: Employed H&P Review of Systems - Review of Systems: Review Of Systems: Comprehensive ROS is negative, except as noted in HPI. Exam - Exam Exam: See Below - Vital Signs Vital Signs: Last Vital Signs Temp 97.9 F 01/07/21 06:19 Pulse 84 01/07/21 08:33 Resp 20 01/07/21 06:19 BP 130/63 01/07/21 08:33 Pulse Ox 94 L 01/07/21 06:19 Weight: 132 lb 14.4 oz - Exam Quality Assessment: Supplemental Oxygen General: Alert, Oriented, 4 HEENT: Conjunctiva Clear, Mucosa Moist & Reasnor, Normal Nasal Septum Neck: Supple, Trachea Midline, 2 Lungs: Decreased Breath Sounds (Bilateral bases, worse on the right side), Crackles (Throughout both lung ornelas) Cardiovascular: Regular Rate, Regular Rhythm, Normal S1, Normal S2 GI/Abdominal Exam: Normal Bowel Sounds, Soft, Non-Tender, No Organomegaly, No Distention, No Abnormal Bruit, No Mass Extremities: Normal Inspection, Non-Tender, Normal Capillary Refill, Pedal Edema (1-2+ bilaterally) Skin: Warm, Dry, Intact Neuro Extensive - Mental Status: Alert, Oriented x3, Normal Mood/Affect, Normal Cognition, Memory Intact Neuro Extensive - Motor, Sensory, Reflexes: CN II-XII Intact Psychiatric: Alert, Normal Affect, Normal Mood - Patient Data Lab Results Last 24 hrs: Laboratory Results - last 24 hr 01/06/21 01/06/21 01/06/21 Range/Units 18:24 19:00 19:00 WBC 9.90 (3.98-10.04) K/mm3 RBC 5.15 (3.98-5.22) M/mm3 Hgb 13.6 D (11.2-15.7) gm/dl Hct 40.3 (34.1-44.9) % MCV 78.3 L D (79.4-94.8) fl MCH 26.4 (25.6-32.2) pg MCHC 33.7 (32.2-35.5) g/dl RDW Std Deviation 42.0 (36.4-46.3) fL Plt Count 837 H D (182-369) K/mm3 MPV 7.8 L (9.4-12.3) fl Neut % (Auto) 80.2 H (34.0-71.1) % Lymph % (Auto) 9.2 L (19.3-51.7) % Payette % (Auto) 8.5 (4.7-12.5) % Eos % (Auto) 1.3 (0.7-5.8) Baso % (Auto) 0.6 (0.1-1.2) % Neut # (Auto) 7.94 H (1.56-6.13) K/mm3 Lymph # (Auto) 0.91 L (1.18-3.74) K/mm3 Payette # (Auto) 0.84 H (0.24-0.36) K/mm3 Eos # (Auto) 0.13 (0.04-0.36) K/mm3 Baso # (Auto) 0.06 (0.01-0.08) K/mm3 Manual Slide Review Abnormal smear PT (9.7-12.0) SECONDS INR APTT (21.7-31.4) SECONDS Sodium 127 L D (136-145) mEq/L Potassium 3.4 L (3.5-5.1) mEq/L Chloride 91 L D (98-107) mEq/L Carbon Dioxide 29 (21-32) mEq/L Anion Gap 10.4 (5-15) BUN 9 (7-18) mg/dL Creatinine 0.4 L (0.55-1.02) mg/dL Est Cr Clr Drug Dosing 109.67 mL/min Estimated GFR (MDRD) > 60 (>60) mL/min BUN/Creatinine Ratio 22.5 H (14-18) Glucose 142 H (70-99) mg/dL POC Glucose (70-99) mg/dL Calcium 8.8 (8.5-10.1) mg/dL Magnesium 1.5 L (1.8-2.4) mg/dL Total Bilirubin 0.6 (0.2-1.0) mg/dL AST 13 L (15-37) U/L ALT 18 (14-59) U/L Alkaline Phosphatase 103 (46-116) U/L Troponin I < 0.017 (0.00-0.056) ng/mL C-Reactive Protein 1.0 (<1.0) mg/dL NT-Pro-B Natriuret Pep 7127 H (0-450) pg/mL Total Protein 6.8 (6.4-8.2) g/dl Albumin 3.0 L (3.4-5.0) g/dl Globulin 3.8 gm/dL Albumin/Globulin Ratio 0.8 L (1-2) Lipase (73-393) U/L Body Fluid Site Fluid Type Fluid Volume ML Fluid Color Fluid Appearance Fluid WBC (0.20-0.60) k/mm*3 Fluid RBC (0.00-0.010) 10*6/uL Fluid Seg Neutrophils (0-25) % Fluid Lymphocytes (0-78) % Fluid Monocytes (0-71) % Fluid Macrophages Fluid Glucose mg/dL Fluid Total Protein gm/dl 01/06/21 01/06/21 01/06/21 Range/Units 19:00 19:00 19:05 WBC (3.98-10.04) K/mm3 RBC (3.98-5.22) M/mm3 Hgb (11.2-15.7) gm/dl Hct (34.1-44.9) % MCV (79.4-94.8) fl MCH (25.6-32.2) pg MCHC (32.2-35.5) g/dl RDW Std Deviation (36.4-46.3) fL Plt Count (182-369) K/mm3 MPV (9.4-12.3) fl Neut % (Auto) (34.0-71.1) % Lymph % (Auto) (19.3-51.7) % Payette % (Auto) (4.7-12.5) % Eos % (Auto) (0.7-5.8) Baso % (Auto) (0.1-1.2) % Neut # (Auto) (1.56-6.13) K/mm3 Lymph # (Auto) (1.18-3.74) K/mm3 Payette # (Auto) (0.24-0.36) K/mm3 Eos # (Auto) (0.04-0.36) K/mm3 Baso # (Auto) (0.01-0.08) K/mm3 Manual Slide Review PT 11.8 (9.7-12.0) SECONDS INR 1.07 APTT 26.8 (21.7-31.4) SECONDS Sodium (136-145) mEq/L Potassium (3.5-5.1) mEq/L Chloride (98-107) mEq/L Carbon Dioxide (21-32) mEq/L Anion Gap (5-15) BUN (7-18) mg/dL Creatinine (0.55-1.02) mg/dL Est Cr Clr Drug Dosing mL/min Estimated GFR (MDRD) (>60) mL/min BUN/Creatinine Ratio (14-18) Glucose (70-99) mg/dL POC Glucose (70-99) mg/dL Calcium (8.5-10.1) mg/dL Magnesium (1.8-2.4) mg/dL Total Bilirubin (0.2-1.0) mg/dL AST (15-37) U/L ALT (14-59) U/L Alkaline Phosphatase (46-116) U/L Troponin I (0.00-0.056) ng/mL C-Reactive Protein (<1.0) mg/dL NT-Pro-B Natriuret Pep (0-450) pg/mL Total Protein (6.4-8.2) g/dl Albumin (3.4-5.0) g/dl Globulin gm/dL Albumin/Globulin Ratio (1-2) Lipase 74 (73-393) U/L Body Fluid Site Fluid Type Pleural fluid Fluid Volume ML Fluid Color Fluid Appearance Fluid WBC (0.20-0.60) k/mm*3 Fluid RBC (0.00-0.010) 10*6/uL Fluid Seg Neutrophils (0-25) % Fluid Lymphocytes (0-78) % Fluid Monocytes (0-71) % Fluid Macrophages Fluid Glucose 147 mg/dL Fluid Total Protein 3.5 gm/dl 01/06/21 01/07/21 Range/Units 19:05 06:18 WBC (3.98-10.04) K/mm3 RBC (3.98-5.22) M/mm3 Hgb (11.2-15.7) gm/dl Hct (34.1-44.9) % MCV (79.4-94.8) fl MCH (25.6-32.2) pg MCHC (32.2-35.5) g/dl RDW Std Deviation (36.4-46.3) fL Plt Count (182-369) K/mm3 MPV (9.4-12.3) fl Neut % (Auto) (34.0-71.1) % Lymph % (Auto) (19.3-51.7) % Payette % (Auto) (4.7-12.5) % Eos % (Auto) (0.7-5.8) Baso % (Auto) (0.1-1.2) % Neut # (Auto) (1.56-6.13) K/mm3 Lymph # (Auto) (1.18-3.74) K/mm3 Payette # (Auto) (0.24-0.36) K/mm3 Eos # (Auto) (0.04-0.36) K/mm3 Baso # (Auto) (0.01-0.08) K/mm3 Manual Slide Review PT (9.7-12.0) SECONDS INR APTT (21.7-31.4) SECONDS Sodium (136-145) mEq/L Potassium (3.5-5.1) mEq/L Chloride (98-107) mEq/L Carbon Dioxide (21-32) mEq/L Anion Gap (5-15) BUN (7-18) mg/dL Creatinine (0.55-1.02) mg/dL Est Cr Clr Drug Dosing mL/min Estimated GFR (MDRD) (>60) mL/min BUN/Creatinine Ratio (14-18) Glucose (70-99) mg/dL POC Glucose 152 H (70-99) mg/dL Calcium (8.5-10.1) mg/dL Magnesium (1.8-2.4) mg/dL Total Bilirubin (0.2-1.0) mg/dL AST (15-37) U/L ALT (14-59) U/L Alkaline Phosphatase (46-116) U/L Troponin I (0.00-0.056) ng/mL C-Reactive Protein (<1.0) mg/dL NT-Pro-B Natriuret Pep (0-450) pg/mL Total Protein (6.4-8.2) g/dl Albumin (3.4-5.0) g/dl Globulin gm/dL Albumin/Globulin Ratio (1-2) Lipase (73-393) U/L Body Fluid Site Pleural fluid Fluid Type Fluid Volume 24 ML Fluid Color Yellow Fluid Appearance Clear Fluid WBC 0.30 (0.20-0.60) k/mm*3 Fluid RBC (0.00-0.010) 10*6/uL Fluid Seg Neutrophils 10.0 (0-25) % Fluid Lymphocytes 64.0 (0-78) % Fluid Monocytes 5.0 (0-71) % Fluid Macrophages 21 Fluid Glucose mg/dL Fluid Total Protein gm/dl Result Diagrams: 01/07/21 09:07 01/07/21 09:07 Hai Results Last 24 hrs: Microbiology 01/06/21 19:05 Gram Stain - Final Pleural Fluid Sepsis Event Note - Evaluation Sepsis Screening Result: No Definite Risk - Focused Exam Vital Signs: Vital Signs Temp Pulse Resp BP Pulse Ox 01/07/21 08:33 84 130/63 01/07/21 06:19 97.9 F 84 17 125/59 L 94 L 01/07/21 06:00 19 01/07/21 05:00 19 01/07/21 04:00 22 H 01/07/21 03:00 21 H 01/07/21 02:00 23 H 01/07/21 01:08 98.4 F 93 20 132/84 100 01/07/21 01:00 21 H 01/07/21 00:00 20 01/06/21 23:00 23 H 01/06/21 22:19 98.1 F 92 22 H 160/99 H 96 01/06/21 22:06 93 88 L - Problem List (1) Acute exacerbation of congestive heart failure SNOMED Code(s): 808745154, 83659260039918 ICD Code: I50.9 - HEART FAILURE, UNSPECIFIED Status: Acute Current Visit: Yes Qualifiers: Heart failure type: unspecified Qualified Code(s): I50.9 - Heart failure, unspecified (2) Hypoxia SNOMED Code(s): 252293456 ICD Code: R09.02 - HYPOXEMIA Status: Acute Current Visit: Yes (3) Pleural effusion, left SNOMED Code(s): 03526341 ICD Code: J90 - PLEURAL EFFUSION, NOT ELSEWHERE CLASSIFIED Status: Acute Current Visit: Yes (4) Pleural effusion, right SNOMED Code(s): 09867723 ICD Code: J90 - PLEURAL EFFUSION, NOT ELSEWHERE CLASSIFIED Status: Acute Current Visit: Yes (5) Thrombocytosis SNOMED Code(s): 6381285 ICD Code: D75.839 - THROMBOCYTOSIS, UNSPECIFIED Status: Acute Current Visit: Yes Problem List Initiated/Reviewed/Updated: Yes Orders Last 24hrs: Active Orders 24 hr Category Date Time Status Patient Status [ADT] Routine ADT 01/06/21 21:00 Active Activity as Tolerated [RC] .Routine Care 01/07/21 08:46 Ordered Blood Glucose Check, Bedside [RC] WITHMEALSANDBED Care 01/06/21 22:05 Active Incentive Spirometry [RT Incentive Spirometry] [RC] Care 01/06/21 22:00 Active Q1HWA Oxygen Therapy Adult [Oxygen Therapy] [RC] ASDIRECTED Care 01/07/21 02:17 Active Telemetry Monitoring [Cardiac Monitoring] [RC] . Care 01/07/21 07:42 Active DIRECTED Up With Assistance [RC] ASDIRECTED Care 01/06/21 22:01 Active Heart Healthy Diet [DIET] Diet 01/07/21 Breakfast Active CXR [Chest 1V Frontal] [CR] Routine Exams 01/07/21 08:48 Ordered Echo Comp wo Cont [US] Routine Exams 01/07/21 Ordered C-REACTIVE PROTEIN [CHEM] Routine Lab 01/07/21 08:45 Ordered CBC WITH AUTO DIFF [HEME] Routine Lab 01/07/21 08:45 Ordered COMPREHENSIVE METABOLIC PN,CMP [CHEM] Routine Lab 01/07/21 08:45 Ordered GLYCOSYLATED HEMOGLOBIN,HGBA1C [CHEM] Routine Lab 01/07/21 08:45 Ordered MAGNESIUM [CHEM] Routine Lab 01/07/21 08:45 Ordered MISCELLANEOUS CULT [MREF] Stat Lab 01/06/21 19:05 Received PHOSPHORUS [CHEM] Routine Lab 01/07/21 08:45 Ordered TSH [CHEM] Routine Lab 01/07/21 08:45 Ordered Furosemide [Lasix] Med 01/06/21 20:30 Active 40 mg IVPUSH DAILY Metoprolol Succinate Med 01/07/21 21:00 Ordered 100 mg PO BEDTIME Metoprolol Succinate [Toprol XL] Med 01/07/21 09:00 Active 100 mg PO DAILY Rosuvastatin Med 01/07/21 09:00 Ordered 5 mg PO DAILY Sodium Chloride 0.9% [Normal Saline] 1,000 ml Med 01/06/21 22:15 Active IV ASDIRECTED Sodium Chloride 0.9% [Saline Flush] Med 01/06/21 16:49 Active 10 ml FLUSH ASDIRECTED PRN metFORMIN [Glucophage] Med 01/07/21 09:00 Active 1,000 mg PO DAILY Peripheral IV Insertion Adult [OM.PC] Stat Oth 01/06/21 16:49 Ordered Pulse Oximetry Continuous Monitoring [OM.PC] Routine Oth 01/07/21 07:41 Active Code Status [Resuscitation Status] Routine Resus Stat 01/07/21 02:19 Ordered Medication Orders Furosemide (Furosemide 40 Mg/4 Ml Vial) 40 mg IVPUSH DAILY [facility] Last Admin: 01/07/21 08:34 Dose: 40 mg Documented by: Admin: 01/06/21 21:08 Dose: 40 mg Documented by: PANCHO Sodium Chloride (Normal Saline) 1,000 mls @ 50 mls/hr IV ASDIRECTED JENNY Metformin HCl (Metformin 500 Mg Tab) 1,000 mg PO DAILY [facility] Last Admin: 01/07/21 08:33 Dose: 1,000 mg Documented by: JONATHAN Metoprolol Succinate (Metoprolol Succinate 50 Mg Tab.Er) 100 mg PO DAILY [facility] Last Admin: 01/07/21 08:33 Dose: 100 mg Documented by: JONATHAN Metoprolol Succinate (Metoprolol Succinate 50 Mg Tab.Er) 100 mg PO BEDTIME [facility] Non-Formulary Medication (Rosuvastatin) 5 mg PO DAILY [facility] Sodium Chloride (Sodium Chloride 0.9% 10 Ml Syringe) 10 ml FLUSH ASDIRECTED PRN PRN Reason: Keep Vein Open Last Admin: 01/06/21 18:48 Dose: 10 ml Documented by: YELENA Assessment/Plan Comment:: 75-year-old diabetic female with peripheral vascular disease admitted for shortness of breath secondary to new onset pleural effusion. Bilateral pleural effusions right worse than left. Post thoracentesis on the right New onset congestive heart failure * Presented to primary care provider with increasing shortness of breath and found large right-sided pleural effusion * Thoracentesis performed in the emergency department removing 2000 mL of fluid * No history of previous heart disease or CHF * Gram stain negative for bacteria * proBNP 7127, C-reactive protein 1.0, WBC 9.9 with 80% neutrophils Possible pneumonia * Chest x-ray from this morning shows increasing consolidation within the right upper lung and right lower lung from prior chest CT. Findings most likely represent worsening pneumonia. Slight increased density within the medial left lung base is seen possibly due to an additional area of pneumonia. Pleural effusions that were noted on prior chest CT are not well seen on chest x-ray. * White count did worsen to 10.9 and C-reactive protein increased to 4.6. * No antibiotics given in the emergency department Type 2 diabetes mellitus * On metformin 1 g twice daily * Hemoglobin A1c 6.4 Peripheral vascular disease Hypertension * History of stent in right leg * Allergy to lisinopril * On metoprolol and hydrochlorothiazide * On Plavix Plan * Admit to medical floor * Continue Lasix 40 mg IV twice daily for the first day * Recheck chest x-ray in the morning * Blood cultures x2 * Procalcitonin * Follow CBC, CMP, mag, CRP * Rocephin 2 g daily * May need to consult surgery if fluid reaccumulates * Await culture on pleural effusion * Continue metoprolol * Hold hydrochlorothiazide and Metformin * Sliding scale insulin 4 times daily * VTE prophylaxis with Lovenox * CODE STATUS: Full code - Mortality Measure Prognosis:: Good
[2021-01-07] MEDS ORDERED: Insulin Lispro 100 Unit/ML 3 ML KwikPen SUBCUT PRN (08:53)
[2021-01-07] MEDS ORDERED: metFORMIN 500 MG Tab PO SCH (09:00)
--- NOTE | 2021-01-07 09:27 | CR ---
Chest: Portable view of the chest was obtained. Comparison: Prior chest CT study of 01/06/21. Increasing consolidation is noted within the right upper and right lower lung which has increased from prior study. Minimal density is also suggested within the medial left lung base. Heart size and mediastinum are within normal limits for portable technique. Bony structures show nothing acute. Impression: 1. Increasing consolidation within the right upper lung and right lower lung from prior chest CT. Findings most likely represent worsening pneumonia. Slight increased density within the medial left lung base is seen possibly due to an additional area of pneumonia. 2. Pleural effusions that were noted on prior chest CT are not well seen on chest x-ray. Diagnostic code #3
[2021-01-07 09:56] LABS: HEMOGLOBIN A1C 6.4 %
[2021-01-07] MEDS: Rosuvastatin 10 MG Tab PO SCH (10:09)
[2021-01-07] MEDS: Insulin Lispro 100 Unit/ML 3 ML KwikPen SUBCUT SCH ×3 (11:45→23:18)
[2021-01-07] MEDS ORDERED: Magnesium Sulfate/Water 4 GM in Premix Bag 1 BAG IV ONE (12:00)
[2021-01-07] MEDS ORDERED: cefTRIAXone 2 GM in Sodium Chloride 0.9% 100 ML IV SCH (12:15)
[2021-01-07] MEDS ORDERED: Potassium Chloride 20 MEQ Tab.ER PO ONE (13:42)
[2021-01-07] MEDS: cefTRIAXone 2 GM in Sodium Chloride 0.9% 100 ML IV SCH (16:07)
[2021-01-07] MEDS ORDERED: Metoprolol Succinate 50 MG Tab.ER PO SCH ×2 (21:00)
[2021-01-08] MEDS: Insulin Lispro 100 Unit/ML 3 ML KwikPen SUBCUT SCH ×4 (07:32→22:02)
--- NOTE | 2021-01-08 07:47 | PCM.PN ---
- General Info Date of Service: 01/08/21 Admission Dx/Problem (Free Text): Admission Diagnosis/Problem Admission Diagnosis/Problem Pleural effusion Subjective Update: The patient is a 75-year-old lady who had presented to the emergency department for admission secondary to worsening dyspnea. The patient's chest x-ray in the clinic and revealed a large right-sided pleural effusion. The patient does have a history of peripheral vascular disease and had femoral artery stents placed. 2 L of slightly yellow-annmarie fluid were removed in the emergency department. T chilango the patient says that she is breathing better. She is more comfortable. She has been tolerating her diet. Functional Status: Reports: Pain Controlled, Tolerating Diet. Denies: New Symptoms - Review of Systems General: Reports: No Symptoms HEENT: Reports: No Symptoms Pulmonary: Reports: No Symptoms Cardiovascular: Reports: No Symptoms Gastrointestinal: Reports: No Symptoms Genitourinary: Reports: No Symptoms Musculoskeletal: Reports: No Symptoms Skin: Reports: No Symptoms Neurological: Reports: No Symptoms Psychiatric: Reports: No Symptoms - Patient Data Vitals - Most Recent: Last Vital Signs Temp 37.1 C 01/07/21 23:34 Pulse 79 01/07/21 23:34 Resp 18 01/07/21 23:34 BP 140/57 L 01/07/21 23:34 Pulse Ox 93 L 01/07/21 23:34 Weight - Most Recent: 57.062 kg I&O - Last 24 Hours: Intake & Output 01/07/21 01/08/21 01/08/21 22:59 06:59 14:59 Intake Total 630 300 Output Total 2346 1325 Balance -645 -1025 Lab Results Last 24 Hours: Laboratory Results - last 24 hr 01/07/21 01/07/21 01/07/21 Range/Units 09:07 09:07 09:07 WBC 10.87 H (3.98-10.04) K/mm3 RBC 5.48 H (3.98-5.22) M/mm3 Hgb 14.4 (11.2-15.7) gm/dl Hct 42.7 (34.1-44.9) % MCV 77.9 L (79.4-94.8) fl MCH 26.3 (25.6-32.2) pg MCHC 33.7 (32.2-35.5) g/dl RDW Std Deviation 42.0 (36.4-46.3) fL Plt Count 777 H (182-369) K/mm3 MPV 7.7 L (9.4-12.3) fl Neut % (Auto) 84.5 H (34.0-71.1) % Lymph % (Auto) 6.5 L (19.3-51.7) % [place] % (Auto) 7.5 (4.7-12.5) % Eos % (Auto) 0.8 (0.7-5.8) Baso % (Auto) 0.5 (0.1-1.2) % Neut # (Auto) 9.19 H (1.56-6.13) K/mm3 Lymph # (Auto) 0.71 L (1.18-3.74) K/mm3 [place] # (Auto) 0.81 H (0.24-0.36) K/mm3 Eos # (Auto) 0.09 (0.04-0.36) K/mm3 Baso # (Auto) 0.05 (0.01-0.08) K/mm3 Sodium 126 L (136-145) mEq/L Potassium 3.5 (3.5-5.1) mEq/L Chloride 91 L (98-107) mEq/L Carbon Dioxide 30 (21-32) mEq/L Anion Gap 8.5 (5-15) BUN 11 (7-18) mg/dL Creatinine 0.6 (0.55-1.02) mg/dL Est Cr Clr Drug Dosing 75.91 mL/min Estimated GFR (MDRD) > 60 (>60) mL/min BUN/Creatinine Ratio 18.3 H (14-18) Glucose 153 H (70-99) mg/dL POC Glucose (70-99) mg/dL Hemoglobin A1c 6.4 H ( - 5.6) % Calcium 8.5 (8.5-10.1) mg/dL Phosphorus 4.5 (2.6-4.7) mg/dL Magnesium 1.5 L (1.8-2.4) mg/dL Total Bilirubin 0.7 (0.2-1.0) mg/dL AST 13 L (15-37) U/L ALT 15 (14-59) U/L Alkaline Phosphatase 90 (46-116) U/L C-Reactive Protein 4.6 H* (<1.0) mg/dL Total Protein 6.2 L (6.4-8.2) g/dl Albumin 2.7 L (3.4-5.0) g/dl Globulin 3.5 gm/dL Albumin/Globulin Ratio 0.8 L (1-2) Procalcitonin ng/mL TSH 3rd Generation 2.982 (0.358-3.74) uIU/mL 01/07/21 01/07/21 01/07/21 Range/Units 09:07 11:26 17:26 WBC (3.98-10.04) K/mm3 RBC (3.98-5.22) M/mm3 Hgb (11.2-15.7) gm/dl Hct (34.1-44.9) % MCV (79.4-94.8) fl MCH (25.6-32.2) pg MCHC (32.2-35.5) g/dl RDW Std Deviation (36.4-46.3) fL Plt Count (182-369) K/mm3 MPV (9.4-12.3) fl Neut % (Auto) (34.0-71.1) % Lymph % (Auto) (19.3-51.7) % [place] % (Auto) (4.7-12.5) % Eos % (Auto) (0.7-5.8) Baso % (Auto) (0.1-1.2) % Neut # (Auto) (1.56-6.13) K/mm3 Lymph # (Auto) (1.18-3.74) K/mm3 [place] # (Auto) (0.24-0.36) K/mm3 Eos # (Auto) (0.04-0.36) K/mm3 Baso # (Auto) (0.01-0.08) K/mm3 Sodium (136-145) mEq/L Potassium (3.5-5.1) mEq/L Chloride (98-107) mEq/L Carbon Dioxide (21-32) mEq/L Anion Gap (5-15) BUN (7-18) mg/dL Creatinine (0.55-1.02) mg/dL Est Cr Clr Drug Dosing mL/min Estimated GFR (MDRD) (>60) mL/min BUN/Creatinine Ratio (14-18) Glucose (70-99) mg/dL POC Glucose 157 H 117 H (70-99) mg/dL Hemoglobin A1c ( - 5.6) % Calcium (8.5-10.1) mg/dL Phosphorus (2.6-4.7) mg/dL Magnesium (1.8-2.4) mg/dL Total Bilirubin (0.2-1.0) mg/dL AST (15-37) U/L ALT (14-59) U/L Alkaline Phosphatase (46-116) U/L C-Reactive Protein (<1.0) mg/dL Total Protein (6.4-8.2) g/dl Albumin (3.4-5.0) g/dl Globulin gm/dL Albumin/Globulin Ratio (1-2) Procalcitonin 0.26 H ng/mL TSH 3rd Generation (0.358-3.74) uIU/mL 01/07/21 01/08/21 01/08/21 Range/Units 22:44 04:55 04:55 WBC 7.63 (3.98-10.04) K/mm3 RBC 4.88 (3.98-5.22) M/mm3 Hgb 12.8 D (11.2-15.7) gm/dl Hct 38.8 (34.1-44.9) % MCV 79.5 (79.4-94.8) fl MCH 26.2 (25.6-32.2) pg MCHC 33.0 (32.2-35.5) g/dl RDW Std Deviation 42.7 (36.4-46.3) fL Plt Count 685 H D (182-369) K/mm3 MPV 8.0 L (9.4-12.3) fl Neut % (Auto) 73.8 H (34.0-71.1) % Lymph % (Auto) 11.5 L (19.3-51.7) % [place] % (Auto) 9.8 (4.7-12.5) % Eos % (Auto) 3.8 (0.7-5.8) Baso % (Auto) 1.0 (0.1-1.2) % Neut # (Auto) 5.62 (1.56-6.13) K/mm3 Lymph # (Auto) 0.88 L (1.18-3.74) K/mm3 [place] # (Auto) 0.75 H (0.24-0.36) K/mm3 Eos # (Auto) 0.29 (0.04-0.36) K/mm3 Baso # (Auto) 0.08 (0.01-0.08) K/mm3 Sodium 134 L (136-145) mEq/L Potassium 3.8 (3.5-5.1) mEq/L Chloride 96 L (98-107) mEq/L Carbon Dioxide 29 (21-32) mEq/L Anion Gap 12.8 (5-15) BUN 11 (7-18) mg/dL Creatinine 0.5 L (0.55-1.02) mg/dL Est Cr Clr Drug Dosing 91.09 mL/min Estimated GFR (MDRD) > 60 (>60) mL/min BUN/Creatinine Ratio 22.0 H (14-18) Glucose 146 H (70-99) mg/dL POC Glucose 187 H (70-99) mg/dL Hemoglobin A1c ( - 5.6) % Calcium 8.2 L (8.5-10.1) mg/dL Phosphorus 4.1 (2.6-4.7) mg/dL Magnesium 2.0 (1.8-2.4) mg/dL Total Bilirubin 0.4 (0.2-1.0) mg/dL AST 8 L (15-37) U/L ALT 14 (14-59) U/L Alkaline Phosphatase 69 (46-116) U/L C-Reactive Protein (<1.0) mg/dL Total Protein 5.4 L (6.4-8.2) g/dl Albumin 2.5 L (3.4-5.0) g/dl Globulin 2.9 gm/dL Albumin/Globulin Ratio 0.9 L (1-2) Procalcitonin ng/mL TSH 3rd Generation (0.358-3.74) uIU/mL 01/08/21 Range/Units 06:59 WBC (3.98-10.04) K/mm3 RBC (3.98-5.22) M/mm3 Hgb (11.2-15.7) gm/dl Hct (34.1-44.9) % MCV (79.4-94.8) fl MCH (25.6-32.2) pg MCHC (32.2-35.5) g/dl RDW Std Deviation (36.4-46.3) fL Plt Count (182-369) K/mm3 MPV (9.4-12.3) fl Neut % (Auto) (34.0-71.1) % Lymph % (Auto) (19.3-51.7) % [place] % (Auto) (4.7-12.5) % Eos % (Auto) (0.7-5.8) Baso % (Auto) (0.1-1.2) % Neut # (Auto) (1.56-6.13) K/mm3 Lymph # (Auto) (1.18-3.74) K/mm3 [place] # (Auto) (0.24-0.36) K/mm3 Eos # (Auto) (0.04-0.36) K/mm3 Baso # (Auto) (0.01-0.08) K/mm3 Sodium (136-145) mEq/L Potassium (3.5-5.1) mEq/L Chloride (98-107) mEq/L Carbon Dioxide (21-32) mEq/L Anion Gap (5-15) BUN (7-18) mg/dL Creatinine (0.55-1.02) mg/dL Est Cr Clr Drug Dosing mL/min Estimated GFR (MDRD) (>60) mL/min BUN/Creatinine Ratio (14-18) Glucose (70-99) mg/dL POC Glucose 136 H (70-99) mg/dL Hemoglobin A1c ( - 5.6) % Calcium (8.5-10.1) mg/dL Phosphorus (2.6-4.7) mg/dL Magnesium (1.8-2.4) mg/dL Total Bilirubin (0.2-1.0) mg/dL AST (15-37) U/L ALT (14-59) U/L Alkaline Phosphatase (46-116) U/L C-Reactive Protein (<1.0) mg/dL Total Protein (6.4-8.2) g/dl Albumin (3.4-5.0) g/dl Globulin gm/dL Albumin/Globulin Ratio (1-2) Procalcitonin ng/mL TSH 3rd Generation (0.358-3.74) uIU/mL Hai Results Last 24 Hours: Microbiology 01/06/21 19:05 Miscellaneous Reference Culture - Preliminary Pleural Fluid Gram Stain - Final 01/06/21 19:05 Gram Stain - Final Pleural Fluid Med Orders - Current: Current Medications Enoxaparin Sodium (Enoxaparin 40 Mg/0.4 Ml Syringe) 40 mg SUBCUT DAILY [facility] Furosemide (Furosemide 40 Mg/4 Ml Vial) 40 mg IVPUSH DAILY [facility] Last Admin: 01/07/21 08:34 Dose: 40 mg Documented by: Furosemide (Furosemide 40 Mg/4 Ml Vial) 40 mg IVPUSH Q24H [facility] Last Admin: 01/07/21 15:09 Dose: 40 mg Documented by: Ceftriaxone Sodium 2 gm/ (Sodium Chloride) 100 mls @ 200 mls/hr IV Q24H [facility] Last Admin: 01/07/21 16:07 Dose: 200 mls/hr Documented by: Insulin Human Lispro (Insulin Lispro 100 Unit/Ml 3 Ml Kwikpen) 0 unit SUBCUT QIDACANDBED [facility]; Protocol Last Admin: 01/08/21 07:32 Dose: Not Given Documented by: Metoprolol Succinate (Metoprolol Succinate 50 Mg Tab.Er) 100 mg PO DAILY [facility] Last Admin: 01/07/21 08:33 Dose: 100 mg Documented by: Rosuvastatin Calcium (Rosuvastatin 10 Mg Tab) 5 mg PO DAILY [facility] Last Admin: 01/07/21 10:09 Dose: 5 mg Documented by: Sodium Chloride (Sodium Chloride 0.9% 10 Ml Syringe) 10 ml FLUSH ASDIRECTED PRN PRN Reason: Keep Vein Open Last Admin: 01/06/21 18:48 Dose: 10 ml Documented by: Discontinued Medications Fentanyl (Fentanyl 100 Mcg/2 Ml Sdv) 50 mcg IVPUSH ONETIME ONE Stop: 01/06/21 18:26 Last Admin: 01/06/21 18:40 Dose: 25 mcg Documented by: Sodium Chloride (Normal Saline) 1,000 mls @ 50 mls/hr IV ASDIRECTED [facility] Last Admin: 01/06/21 21:09 Dose: 50 mls/hr Documented by: Sodium Chloride (Normal Saline) 1,000 mls @ 50 mls/hr IV ASDIRECTED [facility] Magnesium Sulfate 4 gm/ Premix 50 mls @ 12.5 mls/hr IV ONETIME ONE Stop: 01/07/21 15:59 Last Admin: 01/07/21 11:47 Dose: 12.5 mls/hr Documented by: Ceftriaxone Sodium 2 gm/ (Sodium Chloride) 100 mls @ 200 mls/hr IV Q24H [facility] Last Admin: 01/08/21 07:40 Dose: Not Given Documented by: Insulin Human Lispro (Insulin Lispro 100 Unit/Ml 3 Ml Kwikpen) 0 unit SUBCUT QIDACANDBED PRN; Protocol PRN Reason: Hyperglycemia Iopamidol (Iopamidol 612 Mg/Ml 100 Ml Bottle) 100 ml IVPUSH ONETIME ONE Stop: 01/06/21 20:12 Last Admin: 01/06/21 20:12 Dose: 100 ml Documented by: Iopamidol (Iopamidol 612 Mg/Ml 50 Ml Sdv) 25 ml IVPUSH ONETIME ONE Stop: 01/06/21 20:12 Last Admin: 01/06/21 20:12 Dose: 25 ml Documented by: Lidocaine/Epinephrine (Lidocaine 1% With Epinephrine 1:100,000 20 Ml Mdv) 20 ml INJECT ONETIME ONE Stop: 01/06/21 17:08 Last Admin: 01/06/21 18:45 Dose: 20 ml Documented by: Metformin HCl (Metformin 500 Mg Tab) 1,000 mg PO DAILY [facility] Last Admin: 01/07/21 08:33 Dose: 1,000 mg Documented by: Midazolam HCl (Midazolam 1 Mg/Ml 2 Ml Sdv) 1 mg IVPUSH ONETIME ONE Stop: 01/06/21 18:27 Last Admin: 01/06/21 18:37 Dose: 1 mg Documented by: Potassium Chloride (Potassium Chloride 20 Meq Tab.Er) 40 meq PO ONETIME ONE Stop: 01/07/21 13:43 Last Admin: 01/07/21 14:16 Dose: 40 meq Documented by: Sodium Chloride (Sodium Chloride 0.9% 10 Ml Syringe) 10 ml FLUSH ONETIME ONE Stop: 01/06/21 20:12 Last Admin: 01/06/21 20:12 Dose: 10 ml Documented by: - Exam Quality Assessment: DVT Prophylaxis. No: Supplemental Oxygen General: Alert, Oriented, Cooperative, No Acute Distress HEENT: Pupils Equal, Pupils Reactive, EOMI, Mucous Membr. Moist/[place] Neck: Supple, Trachea Midline Lungs: Decreased Breath Sounds (Right lower side), Rales Cardiovascular: Regular Rate, Regular Rhythm, No Murmurs GI/Abdominal Exam: Normal Bowel Sounds, Soft, No Distention (Female) Exam: Deferred Back Exam: Normal Inspection, Full Range of Motion Extremities: Normal Inspection, Normal Range of Motion, No Pedal Edema Skin: Warm, Dry, Intact Neurological: No New Focal Deficit, Normal Speech Psy/Mental Status: Alert, Normal Affect, Normal Mood - Patient Data Lab Results Last 24 hrs: Laboratory Results - last 24 hr 01/07/21 01/07/21 01/07/21 Range/Units 09:07 09:07 09:07 WBC 10.87 H (3.98-10.04) K/mm3 RBC 5.48 H (3.98-5.22) M/mm3 Hgb 14.4 (11.2-15.7) gm/dl Hct 42.7 (34.1-44.9) % MCV 77.9 L (79.4-94.8) fl MCH 26.3 (25.6-32.2) pg MCHC 33.7 (32.2-35.5) g/dl RDW Std Deviation 42.0 (36.4-46.3) fL Plt Count 777 H (182-369) K/mm3 MPV 7.7 L (9.4-12.3) fl Neut % (Auto) 84.5 H (34.0-71.1) % Lymph % (Auto) 6.5 L (19.3-51.7) % [place] % (Auto) 7.5 (4.7-12.5) % Eos % (Auto) 0.8 (0.7-5.8) Baso % (Auto) 0.5 (0.1-1.2) % Neut # (Auto) 9.19 H (1.56-6.13) K/mm3 Lymph # (Auto) 0.71 L (1.18-3.74) K/mm3 [place] # (Auto) 0.81 H (0.24-0.36) K/mm3 Eos # (Auto) 0.09 (0.04-0.36) K/mm3 Baso # (Auto) 0.05 (0.01-0.08) K/mm3 Sodium 126 L (136-145) mEq/L Potassium 3.5 (3.5-5.1) mEq/L Chloride 91 L (98-107) mEq/L Carbon Dioxide 30 (21-32) mEq/L Anion Gap 8.5 (5-15) BUN 11 (7-18) mg/dL Creatinine 0.6 (0.55-1.02) mg/dL Est Cr Clr Drug Dosing 75.91 mL/min Estimated GFR (MDRD) > 60 (>60) mL/min BUN/Creatinine Ratio 18.3 H (14-18) Glucose 153 H (70-99) mg/dL POC Glucose (70-99) mg/dL Hemoglobin A1c 6.4 H ( - 5.6) % Calcium 8.5 (8.5-10.1) mg/dL Phosphorus 4.5 (2.6-4.7) mg/dL Magnesium 1.5 L (1.8-2.4) mg/dL Total Bilirubin 0.7 (0.2-1.0) mg/dL AST 13 L (15-37) U/L ALT 15 (14-59) U/L Alkaline Phosphatase 90 (46-116) U/L C-Reactive Protein 4.6 H* (<1.0) mg/dL Total Protein 6.2 L (6.4-8.2) g/dl Albumin 2.7 L (3.4-5.0) g/dl Globulin 3.5 gm/dL Albumin/Globulin Ratio 0.8 L (1-2) Procalcitonin ng/mL TSH 3rd Generation 2.982 (0.358-3.74) uIU/mL 01/07/21 01/07/21 01/07/21 Range/Units 09:07 11:26 17:26 WBC (3.98-10.04) K/mm3 RBC (3.98-5.22) M/mm3 Hgb (11.2-15.7) gm/dl Hct (34.1-44.9) % MCV (79.4-94.8) fl MCH (25.6-32.2) pg MCHC (32.2-35.5) g/dl RDW Std Deviation (36.4-46.3) fL Plt Count (182-369) K/mm3 MPV (9.4-12.3) fl Neut % (Auto) (34.0-71.1) % Lymph % (Auto) (19.3-51.7) % [place] % (Auto) (4.7-12.5) % Eos % (Auto) (0.7-5.8) Baso % (Auto) (0.1-1.2) % Neut # (Auto) (1.56-6.13) K/mm3 Lymph # (Auto) (1.18-3.74) K/mm3 [place] # (Auto) (0.24-0.36) K/mm3 Eos # (Auto) (0.04-0.36) K/mm3 Baso # (Auto) (0.01-0.08) K/mm3 Sodium (136-145) mEq/L Potassium (3.5-5.1) mEq/L Chloride (98-107) mEq/L Carbon Dioxide (21-32) mEq/L Anion Gap (5-15) BUN (7-18) mg/dL Creatinine (0.55-1.02) mg/dL Est Cr Clr Drug Dosing mL/min Estimated GFR (MDRD) (>60) mL/min BUN/Creatinine Ratio (14-18) Glucose (70-99) mg/dL POC Glucose 157 H 117 H (70-99) mg/dL Hemoglobin A1c ( - 5.6) % Calcium (8.5-10.1) mg/dL Phosphorus (2.6-4.7) mg/dL Magnesium (1.8-2.4) mg/dL Total Bilirubin (0.2-1.0) mg/dL AST (15-37) U/L ALT (14-59) U/L Alkaline Phosphatase (46-116) U/L C-Reactive Protein (<1.0) mg/dL Total Protein (6.4-8.2) g/dl Albumin (3.4-5.0) g/dl Globulin gm/dL Albumin/Globulin Ratio (1-2) Procalcitonin 0.26 H ng/mL TSH 3rd Generation (0.358-3.74) uIU/mL 01/07/21 01/08/21 01/08/21 Range/Units 22:44 04:55 04:55 WBC 7.63 (3.98-10.04) K/mm3 RBC 4.88 (3.98-5.22) M/mm3 Hgb 12.8 D (11.2-15.7) gm/dl Hct 38.8 (34.1-44.9) % MCV 79.5 (79.4-94.8) fl MCH 26.2 (25.6-32.2) pg MCHC 33.0 (32.2-35.5) g/dl RDW Std Deviation 42.7 (36.4-46.3) fL Plt Count 685 H D (182-369) K/mm3 MPV 8.0 L (9.4-12.3) fl Neut % (Auto) 73.8 H (34.0-71.1) % Lymph % (Auto) 11.5 L (19.3-51.7) % [place] % (Auto) 9.8 (4.7-12.5) % Eos % (Auto) 3.8 (0.7-5.8) Baso % (Auto) 1.0 (0.1-1.2) % Neut # (Auto) 5.62 (1.56-6.13) K/mm3 Lymph # (Auto) 0.88 L (1.18-3.74) K/mm3 [place] # (Auto) 0.75 H (0.24-0.36) K/mm3 Eos # (Auto) 0.29 (0.04-0.36) K/mm3 Baso # (Auto) 0.08 (0.01-0.08) K/mm3 Sodium 134 L (136-145) mEq/L Potassium 3.8 (3.5-5.1) mEq/L Chloride 96 L (98-107) mEq/L Carbon Dioxide 29 (21-32) mEq/L Anion Gap 12.8 (5-15) BUN 11 (7-18) mg/dL Creatinine 0.5 L (0.55-1.02) mg/dL Est Cr Clr Drug Dosing 91.09 mL/min Estimated GFR (MDRD) > 60 (>60) mL/min BUN/Creatinine Ratio 22.0 H (14-18) Glucose 146 H (70-99) mg/dL POC Glucose 187 H (70-99) mg/dL Hemoglobin A1c ( - 5.6) % Calcium 8.2 L (8.5-10.1) mg/dL Phosphorus 4.1 (2.6-4.7) mg/dL Magnesium 2.0 (1.8-2.4) mg/dL Total Bilirubin 0.4 (0.2-1.0) mg/dL AST 8 L (15-37) U/L ALT 14 (14-59) U/L Alkaline Phosphatase 69 (46-116) U/L C-Reactive Protein (<1.0) mg/dL Total Protein 5.4 L (6.4-8.2) g/dl Albumin 2.5 L (3.4-5.0) g/dl Globulin 2.9 gm/dL Albumin/Globulin Ratio 0.9 L (1-2) Procalcitonin ng/mL TSH 3rd Generation (0.358-3.74) uIU/mL 01/08/21 Range/Units 06:59 WBC (3.98-10.04) K/mm3 RBC (3.98-5.22) M/mm3 Hgb (11.2-15.7) gm/dl Hct (34.1-44.9) % MCV (79.4-94.8) fl MCH (25.6-32.2) pg MCHC (32.2-35.5) g/dl RDW Std Deviation (36.4-46.3) fL Plt Count (182-369) K/mm3 MPV (9.4-12.3) fl Neut % (Auto) (34.0-71.1) % Lymph % (Auto) (19.3-51.7) % [place] % (Auto) (4.7-12.5) % Eos % (Auto) (0.7-5.8) Baso % (Auto) (0.1-1.2) % Neut # (Auto) (1.56-6.13) K/mm3 Lymph # (Auto) (1.18-3.74) K/mm3 [place] # (Auto) (0.24-0.36) K/mm3 Eos # (Auto) (0.04-0.36) K/mm3 Baso # (Auto) (0.01-0.08) K/mm3 Sodium (136-145) mEq/L Potassium (3.5-5.1) mEq/L Chloride (98-107) mEq/L Carbon Dioxide (21-32) mEq/L Anion Gap (5-15) BUN (7-18) mg/dL Creatinine (0.55-1.02) mg/dL Est Cr Clr Drug Dosing mL/min Estimated GFR (MDRD) (>60) mL/min BUN/Creatinine Ratio (14-18) Glucose (70-99) mg/dL POC Glucose 136 H (70-99) mg/dL Hemoglobin A1c ( - 5.6) % Calcium (8.5-10.1) mg/dL Phosphorus (2.6-4.7) mg/dL Magnesium (1.8-2.4) mg/dL Total Bilirubin (0.2-1.0) mg/dL AST (15-37) U/L ALT (14-59) U/L Alkaline Phosphatase (46-116) U/L C-Reactive Protein (<1.0) mg/dL Total Protein (6.4-8.2) g/dl Albumin (3.4-5.0) g/dl Globulin gm/dL Albumin/Globulin Ratio (1-2) Procalcitonin ng/mL TSH 3rd Generation (0.358-3.74) uIU/mL Result Diagrams: 01/08/21 04:55 01/08/21 04:55 Hai Results Last 24 hrs: Microbiology 01/06/21 19:05 Miscellaneous Reference Culture - Preliminary Pleural Fluid Gram Stain - Final 01/06/21 19:05 Gram Stain - Final Pleural Fluid Sepsis Event Note - Evaluation Sepsis Screening Result: No Definite Risk - Focused Exam Vital Signs: Vital Signs Temp Pulse Resp BP Pulse Ox 01/07/21 23:34 37.1 C 79 18 140/57 L 93 L 01/07/21 22:31 134/55 L 01/07/21 21:23 36.7 C 78 20 143/61 H 92 L - Problem List & Annotations (1) Pleural effusion, right SNOMED Code(s): 29139877 Code(s): J90 - PLEURAL EFFUSION, NOT ELSEWHERE CLASSIFIED Status: Acute Priority: High Current Visit: Yes (2) Hypoxia SNOMED Code(s): 033859014 Code(s): R09.02 - HYPOXEMIA Status: Resolved Priority: High Current Visit: Yes (3) Peripheral vascular disease SNOMED Code(s): 213930289 Code(s): I73.9 - PERIPHERAL VASCULAR DISEASE, UNSPECIFIED Status: Chronic Priority: High Current Visit: Yes (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 Bilateral pleural effusions right worse than left. Post thoracentesis on the right New onset congestive heart failure * Presented to primary care provider with increasing shortness of breath and found large right-sided pleural effusion * Thoracentesis performed in the emergency department removing 2000 mL of fluid * No history of previous heart disease or CHF * Gram stain negative for bacteria * proBNP 7127, C-reactive protein 1.0, WBC 9.9 with 80% neutrophils Possible pneumonia * Chest x-ray from this morning shows increasing consolidation within the right upper lung and right lower lung from prior chest CT. Findings most likely represent worsening pneumonia. Slight increased density within the medial left lung base is seen possibly due to an additional area of pneumonia. Pleural effusions that were noted on prior chest CT are not well seen on chest x-ray. * White count did worsen to 10.9 and C-reactive protein increased to 4.6. * No antibiotics given in the emergency department Type 2 diabetes mellitus * On metformin 1 g twice daily * Hemoglobin A1c 6.4 Peripheral vascular disease Hypertension * History of stent in right leg * Allergy to lisinopril * On metoprolol and hydrochlorothiazide * On Plavix Plan * Admit to medical floor * Continue Lasix 40 mg IV twice daily for the first day * Recheck chest x-ray in the morning * Blood cultures x2 * Procalcitonin * Follow CBC, CMP, mag, CRP * Rocephin 2 g daily * May need to consult surgery if fluid reaccumulates * Await culture on pleural effusion * Continue metoprolol * Hold hydrochlorothiazide and Metformin * Sliding scale insulin 4 times daily * VTE prophylaxis with Lovenox * CODE STATUS: Full code 01/08/2021 The patient is a 75-year-old lady who had been admitted secondary to hypoxia a ssociated with pneumonia. Is also noted that she had a rather large sided right pleural effusion and 2 L were removed in the emergency department. Analysis of this fluid is currently pending. She also had a 2D echocardiogram completed with results pending. This is likely parapneumonic and as a result of this patient will be kept on her Rocephin 2 g IV every 24 hours. Patient is also having DVT prophylaxis with the use of high-dose Lovenox of 40 mg subcutaneous daily. She has been encouraged to ambulate. 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 She has sutures that should be removed in 1 to 2 days. The patient also will continue her regular diet as tolerated. Have ordered repeat laboratory studies for the morning. The patient should be appropriate for discharge in 1 to 2 days.
[2021-01-08] MEDS: Rosuvastatin 10 MG Tab PO SCH (08:14)
[2021-01-08] MEDS: Metoprolol Succinate 50 MG Tab.ER PO SCH (08:14)
[2021-01-08] MEDS: Furosemide 40 MG/4 ML VIAL IVPUSH SCH ×2 (08:16→15:06)
[2021-01-08] MEDS: Enoxaparin 40 MG/0.4 ML Syringe SUBCUT SCH (08:19)
[2021-01-08] MEDS: cefTRIAXone 2 GM in Sodium Chloride 0.9% 100 ML IV SCH (16:06)
[2021-01-09] MEDS: Insulin Lispro 100 Unit/ML 3 ML KwikPen SUBCUT SCH ×4 (07:41→21:55)
[2021-01-09] MEDS: Metoprolol Succinate 50 MG Tab.ER PO SCH (08:08)
[2021-01-09] MEDS: Rosuvastatin 10 MG Tab PO SCH (08:14)
[2021-01-09] MEDS: Furosemide 40 MG/4 ML VIAL IVPUSH SCH ×2 (08:20→16:00)
[2021-01-09] MEDS: Enoxaparin 40 MG/0.4 ML Syringe SUBCUT SCH (08:26)
--- NOTE | 2021-01-09 09:03 | PCM.PN ---
- General Info Date of Service: 01/09/21 Admission Dx/Problem (Free Text): Admission Diagnosis/Problem Admission Diagnosis/Problem Pleural effusion Subjective Update: The patient is a 75-year-old lady who had presented to the emergency department on January 07, 2021 for admission secondary to worsening dyspnea. The patient's chest x-ray in the clinic and revealed a large right-sided pleural effusion. Patient says that she is feeling weak and she has been having some shortness of breath. The patient has denied any new pain. She has been tolerating her diet. Functional Status: Reports: Pain Controlled, Tolerating Diet. Denies: New Symptoms - Review of Systems General: Reports: No Symptoms HEENT: Reports: No Symptoms Pulmonary: Reports: Shortness of Breath Cardiovascular: Reports: No Symptoms Gastrointestinal: Reports: No Symptoms Genitourinary: Reports: No Symptoms Musculoskeletal: Reports: No Symptoms Skin: Reports: No Symptoms Neurological: Reports: No Symptoms Psychiatric: Reports: No Symptoms - Patient Data Vitals - Most Recent: Last Vital Signs Temp 36.8 C 01/09/21 03:45 Pulse 76 01/09/21 08:08 Resp 18 01/09/21 03:45 BP 163/62 H 01/09/21 08:08 Pulse Ox 93 L 01/09/21 03:45 Weight - Most Recent: 58.604 kg I&O - Last 24 Hours: Intake & Output 01/08/21 01/09/21 01/09/21 22:59 06:59 14:59 Intake Total 1175 0 240 Output Total 1750 300 Balance -575 -300 240 Lab Results Last 24 Hours: Laboratory Results - last 24 hr 01/08/21 01/08/21 01/08/21 Range/Units 11:32 16:46 21:44 WBC (3.98-10.04) K/mm3 RBC (3.98-5.22) M/mm3 Hgb (11.2-15.7) gm/dl Hct (34.1-44.9) % MCV (79.4-94.8) fl MCH (25.6-32.2) pg MCHC (32.2-35.5) g/dl RDW Std Deviation (36.4-46.3) fL Plt Count (182-369) K/mm3 MPV (9.4-12.3) fl Neut % (Auto) (34.0-71.1) % Lymph % (Auto) (19.3-51.7) % Yell % (Auto) (4.7-12.5) % Eos % (Auto) (0.7-5.8) Baso % (Auto) (0.1-1.2) % Neut # (Auto) (1.56-6.13) K/mm3 Lymph # (Auto) (1.18-3.74) K/mm3 Yell # (Auto) (0.24-0.36) K/mm3 Eos # (Auto) (0.04-0.36) K/mm3 Baso # (Auto) (0.01-0.08) K/mm3 Sodium (136-145) mEq/L Potassium (3.5-5.1) mEq/L Chloride (98-107) mEq/L Carbon Dioxide (21-32) mEq/L Anion Gap (5-15) BUN (7-18) mg/dL Creatinine (0.55-1.02) mg/dL Est Cr Clr Drug Dosing mL/min Estimated GFR (MDRD) (>60) mL/min BUN/Creatinine Ratio (14-18) Glucose (70-99) mg/dL POC Glucose 181 H 135 H 189 H (70-99) mg/dL Calcium (8.5-10.1) mg/dL Magnesium (1.8-2.4) mg/dL Total Bilirubin (0.2-1.0) mg/dL AST (15-37) U/L ALT (14-59) U/L Alkaline Phosphatase (46-116) U/L Total Protein (6.4-8.2) g/dl Albumin (3.4-5.0) g/dl Globulin gm/dL Albumin/Globulin Ratio (1-2) 01/09/21 01/09/21 01/09/21 Range/Units 04:55 04:55 06:46 WBC 7.94 (3.98-10.04) K/mm3 RBC 4.42 (3.98-5.22) M/mm3 Hgb 11.6 (11.2-15.7) gm/dl Hct 35.8 (34.1-44.9) % MCV 81.0 (79.4-94.8) fl MCH 26.2 (25.6-32.2) pg MCHC 32.4 (32.2-35.5) g/dl RDW Std Deviation 43.3 (36.4-46.3) fL Plt Count 647 H (182-369) K/mm3 MPV 7.8 L (9.4-12.3) fl Neut % (Auto) 70.4 (34.0-71.1) % Lymph % (Auto) 14.9 L (19.3-51.7) % Yell % (Auto) 9.1 (4.7-12.5) % Eos % (Auto) 4.4 (0.7-5.8) Baso % (Auto) 1.1 (0.1-1.2) % Neut # (Auto) 5.59 (1.56-6.13) K/mm3 Lymph # (Auto) 1.18 (1.18-3.74) K/mm3 Yell # (Auto) 0.72 H (0.24-0.36) K/mm3 Eos # (Auto) 0.35 (0.04-0.36) K/mm3 Baso # (Auto) 0.09 H (0.01-0.08) K/mm3 Sodium 135 L (136-145) mEq/L Potassium 3.4 L (3.5-5.1) mEq/L Chloride 98 (98-107) mEq/L Carbon Dioxide 30 (21-32) mEq/L Anion Gap 10.4 (5-15) BUN 14 (7-18) mg/dL Creatinine 0.6 (0.55-1.02) mg/dL Est Cr Clr Drug Dosing 73.80 mL/min Estimated GFR (MDRD) > 60 (>60) mL/min BUN/Creatinine Ratio 23.3 H (14-18) Glucose 152 H (70-99) mg/dL POC Glucose 147 H (70-99) mg/dL Calcium 8.5 (8.5-10.1) mg/dL Magnesium 1.8 (1.8-2.4) mg/dL Total Bilirubin 0.3 (0.2-1.0) mg/dL AST 10 L (15-37) U/L ALT 15 (14-59) U/L Alkaline Phosphatase 62 (46-116) U/L Total Protein 5.4 L (6.4-8.2) g/dl Albumin 2.5 L (3.4-5.0) g/dl Globulin 2.9 gm/dL Albumin/Globulin Ratio 0.9 L (1-2) Hai Results Last 24 Hours: Microbiology 01/07/21 12:45 Blood Culture - Preliminary Blood - Venous - Lab Draw 01/07/21 12:35 Blood Culture - Preliminary Blood - Venous 01/06/21 19:05 Miscellaneous Reference Culture - Preliminary Pleural Fluid Gram Stain - Final Med Orders - Current: Current Medications Enoxaparin Sodium (Enoxaparin 40 Mg/0.4 Ml Syringe) 40 mg SUBCUT DAILY [facility] Last Admin: 01/09/21 08:26 Dose: 40 mg Documented by: Furosemide (Furosemide 40 Mg/4 Ml Vial) 40 mg IVPUSH DAILY [facility] Last Admin: 01/09/21 08:20 Dose: 40 mg Documented by: Furosemide (Furosemide 40 Mg/4 Ml Vial) 40 mg IVPUSH Q24H [facility] Last Admin: 01/08/21 15:06 Dose: 40 mg Documented by: Ceftriaxone Sodium 2 gm/ (Sodium Chloride) 100 mls @ 200 mls/hr IV Q24H [facility] Last Admin: 01/08/21 16:06 Dose: 200 mls/hr Documented by: Insulin Human Lispro (Insulin Lispro 100 Unit/Ml 3 Ml Kwikpen) 0 unit SUBCUT QIDACANDBED [facility]; Protocol Last Admin: 01/09/21 07:41 Dose: Not Given Documented by: Metoprolol Succinate (Metoprolol Succinate 50 Mg Tab.Er) 100 mg PO DAILY [facility] Last Admin: 01/09/21 08:08 Dose: 100 mg Documented by: Rosuvastatin Calcium (Rosuvastatin 10 Mg Tab) 5 mg PO DAILY [facility] Last Admin: 01/09/21 08:14 Dose: 5 mg Documented by: Sodium Chloride (Sodium Chloride 0.9% 10 Ml Syringe) 10 ml FLUSH ASDIRECTED PRN PRN Reason: Keep Vein Open Last Admin: 01/06/21 18:48 Dose: 10 ml Documented by: Discontinued Medications Fentanyl (Fentanyl 100 Mcg/2 Ml Sdv) 50 mcg IVPUSH ONETIME ONE Stop: 01/06/21 18:26 Last Admin: 01/06/21 18:40 Dose: 25 mcg Documented by: Sodium Chloride (Normal Saline) 1,000 mls @ 50 mls/hr IV ASDIRECTED [facility] Last Admin: 01/06/21 21:09 Dose: 50 mls/hr Documented by: Sodium Chloride (Normal Saline) 1,000 mls @ 50 mls/hr IV ASDIRECTED [facility] Magnesium Sulfate 4 gm/ Premix 50 mls @ 12.5 mls/hr IV ONETIME ONE Stop: 01/07/21 15:59 Last Admin: 01/07/21 11:47 Dose: 12.5 mls/hr Documented by: Ceftriaxone Sodium 2 gm/ (Sodium Chloride) 100 mls @ 200 mls/hr IV Q24H [facility] Last Admin: 01/08/21 07:40 Dose: Not Given Documented by: Insulin Human Lispro (Insulin Lispro 100 Unit/Ml 3 Ml Kwikpen) 0 unit SUBCUT QIDACANDBED PRN; Protocol PRN Reason: Hyperglycemia Iopamidol (Iopamidol 612 Mg/Ml 100 Ml Bottle) 100 ml IVPUSH ONETIME ONE Stop: 01/06/21 20:12 Last Admin: 01/06/21 20:12 Dose: 100 ml Documented by: Iopamidol (Iopamidol 612 Mg/Ml 50 Ml Sdv) 25 ml IVPUSH ONETIME ONE Stop: 01/06/21 20:12 Last Admin: 01/06/21 20:12 Dose: 25 ml Documented by: Lidocaine/Epinephrine (Lidocaine 1% With Epinephrine 1:100,000 20 Ml Mdv) 20 ml INJECT ONETIME ONE Stop: 01/06/21 17:08 Last Admin: 01/06/21 18:45 Dose: 20 ml Documented by: Metformin HCl (Metformin 500 Mg Tab) 1,000 mg PO DAILY [facility] Last Admin: 01/07/21 08:33 Dose: 1,000 mg Documented by: Midazolam HCl (Midazolam 1 Mg/Ml 2 Ml Sdv) 1 mg IVPUSH ONETIME ONE Stop: 01/06/21 18:27 Last Admin: 01/06/21 18:37 Dose: 1 mg Documented by: Potassium Chloride (Potassium Chloride 20 Meq Tab.Er) 40 meq PO ONETIME ONE Stop: 01/07/21 13:43 Last Admin: 01/07/21 14:16 Dose: 40 meq Documented by: Sodium Chloride (Sodium Chloride 0.9% 10 Ml Syringe) 10 ml FLUSH ONETIME ONE Stop: 01/06/21 20:12 Last Admin: 01/06/21 20:12 Dose: 10 ml Documented by: - Exam Quality Assessment: Supplemental Oxygen, DVT Prophylaxis General: Alert, Oriented, Cooperative, No Acute Distress HEENT: Pupils Equal, Pupils Reactive, EOMI, Mucous Membr. Moist/[place] Neck: Supple, Trachea Midline Lungs: Clear to Auscultation, Normal Respiratory Effort Cardiovascular: Regular Rate, Regular Rhythm GI/Abdominal Exam: Normal Bowel Sounds, Soft, Non-Tender, No Distention (Female) Exam: Deferred Back Exam: Normal Inspection, Full Range of Motion Extremities: Normal Inspection, Normal Range of Motion, No Pedal Edema Skin: Warm, Dry, Intact Neurological: No New Focal Deficit Psy/Mental Status: Alert, Normal Affect, Normal Mood - Patient Data Lab Results Last 24 hrs: Laboratory Results - last 24 hr 01/08/21 01/08/21 01/08/21 Range/Units 11:32 16:46 21:44 WBC (3.98-10.04) K/mm3 RBC (3.98-5.22) M/mm3 Hgb (11.2-15.7) gm/dl Hct (34.1-44.9) % MCV (79.4-94.8) fl MCH (25.6-32.2) pg MCHC (32.2-35.5) g/dl RDW Std Deviation (36.4-46.3) fL Plt Count (182-369) K/mm3 MPV (9.4-12.3) fl Neut % (Auto) (34.0-71.1) % Lymph % (Auto) (19.3-51.7) % Yell % (Auto) (4.7-12.5) % Eos % (Auto) (0.7-5.8) Baso % (Auto) (0.1-1.2) % Neut # (Auto) (1.56-6.13) K/mm3 Lymph # (Auto) (1.18-3.74) K/mm3 Yell # (Auto) (0.24-0.36) K/mm3 Eos # (Auto) (0.04-0.36) K/mm3 Baso # (Auto) (0.01-0.08) K/mm3 Sodium (136-145) mEq/L Potassium (3.5-5.1) mEq/L Chloride (98-107) mEq/L Carbon Dioxide (21-32) mEq/L Anion Gap (5-15) BUN (7-18) mg/dL Creatinine (0.55-1.02) mg/dL Est Cr Clr Drug Dosing mL/min Estimated GFR (MDRD) (>60) mL/min BUN/Creatinine Ratio (14-18) Glucose (70-99) mg/dL POC Glucose 181 H 135 H 189 H (70-99) mg/dL Calcium (8.5-10.1) mg/dL Magnesium (1.8-2.4) mg/dL Total Bilirubin (0.2-1.0) mg/dL AST (15-37) U/L ALT (14-59) U/L Alkaline Phosphatase (46-116) U/L Total Protein (6.4-8.2) g/dl Albumin (3.4-5.0) g/dl Globulin gm/dL Albumin/Globulin Ratio (1-2) 01/09/21 01/09/21 01/09/21 Range/Units 04:55 04:55 06:46 WBC 7.94 (3.98-10.04) K/mm3 RBC 4.42 (3.98-5.22) M/mm3 Hgb 11.6 (11.2-15.7) gm/dl Hct 35.8 (34.1-44.9) % MCV 81.0 (79.4-94.8) fl MCH 26.2 (25.6-32.2) pg MCHC 32.4 (32.2-35.5) g/dl RDW Std Deviation 43.3 (36.4-46.3) fL Plt Count 647 H (182-369) K/mm3 MPV 7.8 L (9.4-12.3) fl Neut % (Auto) 70.4 (34.0-71.1) % Lymph % (Auto) 14.9 L (19.3-51.7) % Yell % (Auto) 9.1 (4.7-12.5) % Eos % (Auto) 4.4 (0.7-5.8) Baso % (Auto) 1.1 (0.1-1.2) % Neut # (Auto) 5.59 (1.56-6.13) K/mm3 Lymph # (Auto) 1.18 (1.18-3.74) K/mm3 Yell # (Auto) 0.72 H (0.24-0.36) K/mm3 Eos # (Auto) 0.35 (0.04-0.36) K/mm3 Baso # (Auto) 0.09 H (0.01-0.08) K/mm3 Sodium 135 L (136-145) mEq/L Potassium 3.4 L (3.5-5.1) mEq/L Chloride 98 (98-107) mEq/L Carbon Dioxide 30 (21-32) mEq/L Anion Gap 10.4 (5-15) BUN 14 (7-18) mg/dL Creatinine 0.6 (0.55-1.02) mg/dL Est Cr Clr Drug Dosing 73.80 mL/min Estimated GFR (MDRD) > 60 (>60) mL/min BUN/Creatinine Ratio 23.3 H (14-18) Glucose 152 H (70-99) mg/dL POC Glucose 147 H (70-99) mg/dL Calcium 8.5 (8.5-10.1) mg/dL Magnesium 1.8 (1.8-2.4) mg/dL Total Bilirubin 0.3 (0.2-1.0) mg/dL AST 10 L (15-37) U/L ALT 15 (14-59) U/L Alkaline Phosphatase 62 (46-116) U/L Total Protein 5.4 L (6.4-8.2) g/dl Albumin 2.5 L (3.4-5.0) g/dl Globulin 2.9 gm/dL Albumin/Globulin Ratio 0.9 L (1-2) Result Diagrams: 01/09/21 04:55 01/09/21 04:55 Hai Results Last 24 hrs: Microbiology 01/07/21 12:45 Blood Culture - Preliminary Blood - Venous - Lab Draw 01/07/21 12:35 Blood Culture - Preliminary Blood - Venous 01/06/21 19:05 Miscellaneous Reference Culture - Preliminary Pleural Fluid Gram Stain - Final Sepsis Event Note - Evaluation Sepsis Screening Result: No Definite Risk - Focused Exam Vital Signs: Vital Signs Temp Pulse Resp BP Pulse Ox 01/09/21 08:08 76 163/62 H 01/09/21 03:45 36.8 C 78 18 154/59 H 93 L 01/08/21 23:45 36.6 C 80 18 161/59 H 95 - Problem List & Annotations (1) Pleural effusion, right SNOMED Code(s): 02483289 Code(s): J90 - PLEURAL EFFUSION, NOT ELSEWHERE CLASSIFIED Status: Acute Priority: High Current Visit: Yes (2) Hypoxia SNOMED Code(s): 454354436 Code(s): R09.02 - HYPOXEMIA Status: Resolved Priority: High Current Visit: Yes (3) Peripheral vascular disease SNOMED Code(s): 971868188 Code(s): I73.9 - PERIPHERAL VASCULAR DISEASE, UNSPECIFIED Status: Chronic Priority: High Current Visit: Yes (4) Amputation stump infection SNOMED Code(s): 940685234 Code(s): T87.40 - INFECTION OF AMPUTATION STUMP, UNSPECIFIED EXTREMITY S tatus: Chronic Priority: Medium Current Visit: No - Problem List Review Problem List Initiated/Reviewed/Updated: Yes - Plan Plan:: 75-year-old diabetic female with peripheral vascular disease admitted for shortness of breath secondary to new onset pleural effusion. Bilateral pleural effusions right worse than left. Post thoracentesis on the right New onset congestive heart failure * Presented to primary care provider with increasing shortness of breath and found large right-sided pleural effusion * Thoracentesis performed in the emergency department removing 2000 mL of fluid * No history of previous heart disease or CHF * Gram stain negative for bacteria * proBNP 7127, C-reactive protein 1.0, WBC 9.9 with 80% neutrophils Possible pneumonia * Chest x-ray from this morning shows increasing consolidation within the right upper lung and right lower lung from prior chest CT. Findings most likely represent worsening pneumonia. Slight increased density within the medial left lung base is seen possibly due to an additional area of pneumonia. Pleural effusions that were noted on prior chest CT are not well seen on chest x-ray. * White count did worsen to 10.9 and C-reactive protein increased to 4.6. * No antibiotics given in the emergency department Type 2 diabetes mellitus * On metformin 1 g twice daily * Hemoglobin A1c 6.4 Peripheral vascular disease Hypertension * History of stent in right leg * Allergy to lisinopril * On metoprolol and hydrochlorothiazide * On Plavix Plan * Admit to medical floor * Continue Lasix 40 mg IV twice daily for the first day * Recheck chest x-ray in the morning * Blood cultures x2 * Procalcitonin * Follow CBC, CMP, mag, CRP * Rocephin 2 g daily * May need to consult surgery if fluid reaccumulates * Await culture on pleural effusion * Continue metoprolol * Hold hydrochlorothiazide and Metformin * Sliding scale insulin 4 times daily * VTE prophylaxis with Lovenox * CODE STATUS: Full code 01/08/2021 The patient is a 75-year-old lady who had been admitted secondary to hypoxia associated with pneumonia. Is also noted that she had a rather large sided right pleural effusion and 2 L were removed in the emergency department. Analysis of this fluid is currently pending. She also had a 2D echocardiogram completed with results pending. This is likely parapneumonic and as a result of this patient will be kept on her Rocephin 2 g IV every 24 hours. Patient is al so having DVT prophylaxis with the use of high-dose Lovenox of 40 mg subcutaneous daily. She has been encouraged to ambulate. 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 She has sutures that should be removed in 1 to 2 days. The patient also will continue her regular diet as tolerated. Have ordered repeat laboratory studies for the morning. The patient should be appropriate for discharge in 1 to 2 days. 01/09/2021 The patient is a 75-year-old lady who initially was admitted secondary to hypoxia. The patient has pleural fluid it is currently pending analysis. She had 2 L removed in the emergency department. The patient is on Rocephin 2 g IV every 24 hours for treatment of possible pneumonia. Malignancy cannot be excluded and she should be followed to complete clear chest x-ray after discharge. Patient is also concerned about having sutures removed from her previously amputated toe that was affected due to peripheral vascular disease. The patient had femoral stents placed last week. She is on DVT prophylaxis with the use of Lovenox 40 mg subcutaneous. She has been encouraged to ambulate. The patient will also continue on her regular diet as tolerated. She should be appropriate for discharge in 1 to 2 days depending on her oxygen demands and symptoms. Repeat laboratory studies have been ordered.
[2021-01-09] MEDS ORDERED: Potassium Chloride 20 MEQ Tab.ER PO ONE (11:31)
[2021-01-09] MEDS: cefTRIAXone 2 GM in Sodium Chloride 0.9% 100 ML IV SCH (16:04)
--- NOTE | 2021-01-10 08:48 | PCM.DCSUM1 ---
Discharge Summary - Discharge Data Discharge Date: 01/10/21 Discharge Disposition: Home, W Home Health Agency 06 Condition: Good - Referral to Home Health Date of Face to Face Encounter: 01/10/21 Reason for Homebound Status: A [id number] meeting was held with the patient and family. The patient has the following diagnosis; amputation stump infection, weakness, acute exacerbation of CHF, pleural effusion, peripheral vascular disease and also see discharge summary for additional diagnoses. The patient needs home health care nursing services for; skilled assessment, vital signs, disease education or management, medication education. Physical therapy for gait training, transfer training, safety education, neuromuscular reeducation, therapeutic exercise and balance training. She also needs Occ upational Therapy for activities of daily living, balance training, functional mobility training, safety education, therapeutic activities, therapeutic exercises. The patient is homebound related to decreased activity tolerance, decreased level of endurance and need for assistance. The patient will be followed by her primary care provider Shreya Ta. Primary Care Physician: Indigo Ta NP Skilled Need: prison, PT, OT - Discharge Diagnosis/Problem(s) (1) Pleural effusion, right SNOMED Code(s): 70987557 ICD Code: J90 - PLEURAL EFFUSION, NOT ELSEWHERE CLASSIFIED Status: Resolved Priority: High (2) Hypoxia SNOMED Code(s): 017519935 ICD Code: R09.02 - HYPOXEMIA Status: Resolved Priority: High (3) Peripheral vascular disease SNOMED Code(s): 890935099 ICD Code: I73.9 - PERIPHERAL VASCULAR DISEASE, UNSPECIFIED Status: Chronic Priority: High (4) Amputation stump infection SNOMED Code(s): 393768361 ICD Code: T87.40 - INFECTION OF AMPUTATION STUMP, UNSPECIFIED EXTREMITY Status: Chronic Priority: Medium - Patient Summary/Data Consults: Consultations 01/09/21 17:45 Consult to Physical Therapy [PT Evaluation and Treatment] [CONS] Routine Hospital Course: Is a 75-year-old lady who had presented to the emergency department on January 06, 2021 with a complaint of 3 days worth of gradually worsening dyspnea. The patient's oxygen saturations upon presentation were at 93% on initial evaluation. Chest x-ray done at the clinic had shown a large right-sided pleural effusion which is apparently new for the patient. The patient underwent thoracentesis in the emergency department and 2 L of annmarie fluid were removed. The patient tolerated this well and did not experience pneumothorax. The patient also had COVID-19 screening which was negative. The patient was started on ceftriaxone initially out of concern for parapneumonic fluid and possible pneumonia. The patient tolerated the ceftriaxone well. The patient also had been titrated with oxygen to keep her saturations around 92%. The patient was noted on a chest x-ray upon discharge to have decreased parenchymal density within the right lung base when compared to the prior exam. The patient also had mild left-sided pleural effusion with mild atelectasis. Out of concern for the pleural fluid the patient had a 2D echocardiogram completed which showed a left ventricular ejection fraction of 45 to 50%. Through her course of hospitalization the patient had continued to improve significantly. Her oxygen demands had improved and she was at the point that she was on room air. The patient had been recommended to follow-up with her surgeon for her toe Dr. Booth, and this should be set up. The patient does want to have her sutures removed from her previous toe amputation due to her peripheral vascular disease. 4 weeks ago patient also had femoral stents placed and had been on Plavix for this. As a result of the new heart failure the patient was placed on a azithromycin 500 mg p.o. daily, furosemide 20 mg p.o. daily and potassium citrate 10 mEq daily. Patient has been recommended that she follow-up with her primary care physician closely to follow interval resolution of her chest x-ray. She should have a repeat chest CT in 2 to 3 weeks to help exclude malignancy. The patient had been on heart healthy diet as tolerated. The patient also had been evaluated by physical therapy and it was recommended home health for the patient. The patient has been hemodynamically stable and she has been discharged from acute hospitalization with the recommendations listed above. - Patient Instructions Diet: Heart Healthy Diet, Diabetic Diet Activity: As Tolerated - Discharge Plan *PRESCRIPTION DRUG MONITORING PROGRAM REVIEWED*: Not Applicable *COPY OF PRESCRIPTION DRUG MONITORING REPORT IN PATIENT JAIME: Not Applicable Prescriptions/Med Rec: Azithromycin 500 mg PO DAILY #5 tablet Furosemide 20 mg PO DAILY #30 tablet Potassium Citrate [Potassium Citrate ER] 10 meq PO DAILY #30 tablet.er Home Medications: Home Meds metFORMIN [Glucophage] 1,000 mg PO BID 09/27/20 [History] Acetaminophen 325 mg PO Q6H PRN 01/06/21 [History] Cinnamon Bark [Cinnamon] 500 mg PO DAILY 01/06/21 [History] EPINEPHrine [Epinephrine] 0.3 mg IM ASDIRECTED PRN 01/06/21 [History] Glucosam/Chond/Collagen/Hyalur [Glucosamine Chondroitin] 1 each PO DAILY 01/06/21 [History] Magnesium Oxide 400 mg PO DAILY 01/06/21 [History] Metoprolol Succinate 100 mg PO BEDTIME 01/06/21 [History] Potassium Gluconate [Potassium] 99 mg PO DAILY 01/06/21 [History] Rosuvastatin [Crestor] 5 mg PO DAILY 01/06/21 [History] Ubidecarenone [Co Q-10] 100 mg PO DAILY 01/06/21 [History] Vitamin B Complex 1 each PO DAILY 01/06/21 [History] Vitamin E 1,000 unit PO DAILY 01/06/21 [History] hydroCHLOROthiazide [Hydrochlorothiazide] 25 mg PO BEDTIME 01/06/21 [History] Azithromycin 500 mg PO DAILY #5 tablet 01/10/21 [Rx] Furosemide 20 mg PO DAILY #30 tablet 01/10/21 [Rx] Potassium Citrate [Potassium Citrate ER] 10 meq PO DAILY #30 tablet.er 01/10/21 [Rx] Patient Handouts: Heart Failure Action Plan Referrals: Indigo Ta NP [Primary Care Provider] - 01/18/21 11:00 am (Please arrive at 10:45 for check in.) - Discharge Summary/Plan Comment DC Time >30 min.: Yes Total # of Minutes for Discharge Time: 45 - General Info Date of Service: 01/10/21 Admission Dx/Problem (Free Text: Admission Diagnosis/Problem Admission Diagnosis/Problem Pleural effusion Subjective Update: The patient feels well today. She has denied any pain. No shortness of breath. Patient has been tolerating her her diet. She feels like she can go home safely. Functional Status: Reports: Pain Controlled. Denies: New Symptoms - Review of Systems General: Reports: No Symptoms HEENT: Reports: No Symptoms Pulmonary: Reports: No Symptoms Cardiovascular: Reports: No Symptoms Gastrointestinal: Reports: No Symptoms Genitourinary: Reports: No Symptoms Musculoskeletal: Reports: No Symptoms Skin: Reports: No Symptoms Neurological: Reports: No Symptoms Psychiatric: Reports: No Symptoms - Patient Data Vitals - Most Recent: Last Vital Signs Temp 36.6 C 10/25/21 04:52 Pulse 76 01/10/21 04:52 Resp 16 01/10/21 04:52 BP 137/60 01/10/21 04:52 Pulse Ox 87 L 01/10/21 08:00 Weight - Most Recent: 58.604 kg I&O - Last 24 hours: Intake & Output 01/09/21 01/10/21 01/10/21 22:59 06:59 14:59 Intake Total 175 160 Output Total 1725 700 Balance -1550 -540 Lab Results - Last 24 hrs: Laboratory Results - last 24 hr 01/09/21 01/09/21 01/09/21 Range/Units 11:15 17:22 21:19 WBC (3.98-10.04) K/mm3 RBC (3.98-5.22) M/mm3 Hgb (11.2-15.7) gm/dl Hct (34.1-44.9) % MCV (79.4-94.8) fl MCH (25.6-32.2) pg MCHC (32.2-35.5) g/dl RDW Std Deviation (36.4-46.3) fL Plt Count (182-369) K/mm3 MPV (9.4-12.3) fl Neut % (Auto) (34.0-71.1) % Lymph % (Auto) (19.3-51.7) % [place] % (Auto) (4.7-12.5) % Eos % (Auto) (0.7-5.8) Baso % (Auto) (0.1-1.2) % Neut # (Auto) (1.56-6.13) K/mm3 Lymph # (Auto) (1.18-3.74) K/mm3 [place] # (Auto) (0.24-0.36) K/mm3 Eos # (Auto) (0.04-0.36) K/mm3 Baso # (Auto) (0.01-0.08) K/mm3 Sodium (136-145) mEq/L Potassium (3.5-5.1) mEq/L Chloride (98-107) mEq/L Carbon Dioxide (21-32) mEq/L Anion Gap (5-15) BUN (7-18) mg/dL Creatinine (0.55-1.02) mg/dL Est Cr Clr Drug Dosing mL/min Estimated GFR (MDRD) (>60) mL/min BUN/Creatinine Ratio (14-18) Glucose (70-99) mg/dL POC Glucose 188 H 144 H 189 H (70-99) mg/dL Calcium (8.5-10.1) mg/dL 01/10/21 01/10/21 01/10/21 Range/Units 05:30 05:30 07:09 WBC 7.96 (3.98-10.04) K/mm3 RBC 4.45 (3.98-5.22) M/mm3 Hgb 11.8 (11.2-15.7) gm/dl Hct 36.3 (34.1-44.9) % MCV 81.6 (79.4-94.8) fl MCH 26.5 (25.6-32.2) pg MCHC 32.5 (32.2-35.5) g/dl RDW Std Deviation 44.0 (36.4-46.3) fL Plt Count 675 H (182-369) K/mm3 MPV 7.9 L (9.4-12.3) fl Neut % (Auto) 71.7 H (34.0-71.1) % Lymph % (Auto) 13.6 L (19.3-51.7) % [place] % (Auto) 9.2 (4.7-12.5) % Eos % (Auto) 4.4 (0.7-5.8) Baso % (Auto) 1.0 (0.1-1.2) % Neut # (Auto) 5.71 (1.56-6.13) K/mm3 Lymph # (Auto) 1.08 L (1.18-3.74) K/mm3 [place]lee # (Auto) 0.73 H (0.24-0.36) K/mm3 Eos # (Auto) 0.35 (0.04-0.36) K/mm3 Baso # (Auto) 0.08 (0.01-0.08) K/mm3 Sodium 136 (136-145) mEq/L Potassium 3.3 L (3.5-5.1) mEq/L Chloride 98 (98-107) mEq/L Carbon Dioxide 29 (21-32) mEq/L Anion Gap 12.3 (5-15) BUN 15 (7-18) mg/dL Creatinine 0.5 L (0.55-1.02) mg/dL Est Cr Clr Drug Dosing 88.56 mL/min Estimated GFR (MDRD) > 60 (>60) mL/min BUN/Creatinine Ratio 30.0 H (14-18) Glucose 153 H (70-99) mg/dL POC Glucose 154 H (70-99) mg/dL Calcium 8.4 L (8.5-10.1) mg/dL Med Orders - Current: Current Medications Enoxaparin Sodium (Enoxaparin 40 Mg/0.4 Ml Syringe) 40 mg SUBCUT DAILY [facility] Last Admin: 01/09/21 08:26 Dose: 40 mg Documented by: Furosemide (Furosemide 40 Mg/4 Ml Vial) 40 mg IVPUSH DAILY [facility] Last Admin: 01/09/21 08:20 Dose: 40 mg Documented by: Furosemide (Furosemide 40 Mg/4 Ml Vial) 40 mg IVPUSH Q24H [facility] Last Admin: 01/09/21 16:00 Dose: 40 mg Documented by: Ceftriaxone Sodium 2 gm/ (Sodium Chloride) 100 mls @ 200 mls/hr IV Q24H [facility] Last Admin: 01/09/21 16:04 Dose: 200 mls/hr Documented by: Insulin Human Lispro (Insulin Lispro 100 Unit/Ml 3 Ml Kwikpen) 0 unit SUBCUT QIDACANDBED [facility]; Protocol Last Admin: 01/09/21 21:55 Dose: 1 unit Documented by: Metoprolol Succinate (Metoprolol Succinate 50 Mg Tab.Er) 100 mg PO DAILY [facility] Last Admin: 01/09/21 08:08 Dose: 100 mg Documented by: Rosuvastatin Calcium (Rosuvastatin 10 Mg Tab) 5 mg PO DAILY [facility] Last Admin: 01/09/21 08:14 Dose: 5 mg Documented by: Sodium Chloride (Sodium Chloride 0.9% 10 Ml Syringe) 10 ml FLUSH ASDIRECTED PRN PRN Reason: Keep Vein Open Last Admin: 01/06/21 18:48 Dose: 10 ml Documented by: Discontinued Medications Fentanyl (Fentanyl 100 Mcg/2 Ml Sdv) 50 mcg IVPUSH ONETIME ONE Stop: 01/06/21 18:26 Last Admin: 01/06/21 18:40 Dose: 25 mcg Documented by: Sodium Chloride (Normal Saline) 1,000 mls @ 50 mls/hr IV ASDIRECTED [facility] Last Admin: 01/06/21 21:09 Dose: 50 mls/hr Documented by: Sodium Chloride (Normal Saline) 1,000 mls @ 50 mls/hr IV ASDIRECTED [facility] Magnesium Sulfate 4 gm/ Premix 50 mls @ 12.5 mls/hr IV ONETIME ONE Stop: 01/07/21 15:59 Last Admin: 01/07/21 11:47 Dose: 12.5 mls/hr Documented by: Ceftriaxone Sodium 2 gm/ (Sodium Chloride) 100 mls @ 200 mls/hr IV Q24H [facility] Last Admin: 01/08/21 07:40 Dose: Not Given Documented by: Insulin Human Lispro (Insulin Lispro 100 Unit/Ml 3 Ml Kwikpen) 0 unit SUBCUT QIDACANDBED PRN; Protocol PRN Reason: Hyperglycemia Iopamidol (Iopamidol 612 Mg/Ml 100 Ml Bottle) 100 ml IVPUSH ONETIME ONE Stop: 01/06/21 20:12 Last Admin: 01/06/21 20:12 Dose: 100 ml Documented by: Iopamidol (Iopamidol 612 Mg/Ml 50 Ml Sdv) 25 ml IVPUSH ONETIME ONE Stop: 01/06/21 20:12 Last Admin: 01/06/21 20:12 Dose: 25 ml Documented by: Lidocaine/Epinephrine (Lidocaine 1% With Epinephrine 1:100,000 20 Ml Mdv) 20 ml INJECT ONETIME ONE Stop: 01/06/21 17:08 Last Admin: 01/06/21 18:45 Dose: 20 ml Documented by: Metformin HCl (Metformin 500 Mg Tab) 1,000 mg PO DAILY [facility] Last Admin: 01/07/21 08:33 Dose: 1,000 mg Documented by: Midazolam HCl (Midazolam 1 Mg/Ml 2 Ml Sdv) 1 mg IVPUSH ONETIME ONE Stop: 01/06/21 18:27 Last Admin: 01/06/21 18:37 Dose: 1 mg Documented by: Potassium Chloride (Potassium Chloride 20 Meq Tab.Er) 40 meq PO ONETIME ONE Stop: 01/07/21 13:43 Last Admin: 01/07/21 14:16 Dose: 40 meq Documented by: Potassium Chloride (Potassium Chloride 20 Meq Tab.Er) 20 meq PO ONETIME ONE Stop: 01/09/21 11:32 Last Admin: 01/09/21 12:03 Dose: 20 meq Documented by: Sodium Chloride (Sodium Chloride 0.9% 10 Ml Syringe) 10 ml FLUSH ONETIME ONE Stop: 01/06/21 20:12 Last Admin: 01/06/21 20:12 Dose: 10 ml Documented by: - Exam Quality Assessment: Reports: DVT Prophylaxis. Denies: Supplemental Oxygen General: Reports: Alert, Oriented, Cooperative, No Acute Distress HEENT: Reports: Pupils Equal, Pupils Reactive, EOMI, Mucous Membr. Moist/[place] Neck: Reports: Supple, Trachea Midline Lungs: Reports: Clear to Auscultation, Normal Respiratory Effort Cardiovascular: Reports: Regular Rate, Regular Rhythm GI/Abdominal Exam: Normal Bowel Sounds, No Distention (Female) Exam: Deferred Rectal (Female) Exam: Deferred Back Exam: Reports: Normal Inspection, Full Range of Motion Extremities: Normal Inspection, No Pedal Edema Skin: Reports: Warm, Dry, Intact Neurological: Reports: No New Focal Deficit Psy/Mental Status: Reports: Alert, Normal Affect, Normal Mood Discharge Operative/Procedures - Procedures Performed Thoracentesis Indication: pleural effusion
[2021-01-10] MEDS: Insulin Lispro 100 Unit/ML 3 ML KwikPen SUBCUT SCH ×2 (08:49→12:11)
[2021-01-10] MEDS: Furosemide 40 MG/4 ML VIAL IVPUSH SCH (08:50)
[2021-01-10] MEDS: Enoxaparin 40 MG/0.4 ML Syringe SUBCUT SCH (08:50)
[2021-01-10] MEDS: Rosuvastatin 10 MG Tab PO SCH (08:51)
[2021-01-10] MEDS: Metoprolol Succinate 50 MG Tab.ER PO SCH (08:51)
--- NOTE | 2021-01-10 09:56 | CR ---
Chest: Portable view of the chest was obtained. Comparison: Prior chest x-ray of 01/07/[address] chest of 01/06/21. Findings: Decreasing density is seen within the right lung base from prior study. Findings have not yet returned to baseline. Minimal left-sided pleural effusion is seen with small area of atelectasis. Heart size felt to be slightly enlarged. Upper mediastinum is normal. No acute osseous abnormality is appreciated. Impression: 1. Decreased parenchymal density within the right lung base when compared to prior exam. This area has not yet returned to baseline. 2. Minimal left-sided pleural effusion with mild atelectasis. Diagnostic code #3
== END 2021-01-10 13:40 | disposition home health service (06) | DRG 291 ==
LOC: JD.ED 16:17 → JD.MS 21:13
PROVIDERS: ADMIT Family Medicine; ATTEND Family Medicine
DX: I11.0 Hypertensive heart disease with heart failure (principal); R09.02 Hypoxemia; J18.9 Pneumonia, unspecified organism; J90 Pleural effusion, not elsewhere classified; T87.40 Infection of amputation stump, unspecified extremity; E87.1 Hypo-osmolality and hyponatremia; E11.51 Type 2 diabetes mellitus with diabetic peripheral angiopathy without gangrene; I50.9 Heart failure, unspecified; Z20.822 Contact with and (suspected) exposure to COVID-19; K76.9 Liver disease, unspecified; H54.7 Unspecified visual loss; D75.839 Thrombocytosis, unspecified; E11.65 Type 2 diabetes mellitus with hyperglycemia; Z88.5 Allergy status to narcotic agent; Z88.8 Allergy status to other drugs, medicaments and biological substances; Z98.49 Cataract extraction status, unspecified eye; Z90.710 Acquired absence of both cervix and uterus; Z79.84 Long term (current) use of oral hypoglycemic drugs; Z79.899 Other long term (current) drug therapy; Z89.411 Acquired absence of right great toe
CPT/HCPCS: 36415; 71260; 74177; 80053; 82945; 83690; 83735; 83880; 84157; 84484; 85025; 85610; 85730; 86140; 87070; 87205 ×2; 89050; 93005; J1940; J2250; J3010; J7030; Q9967 ×2; 71045; 71045-26; 80048; 82947; 83036; 84100; 84145; 84443; 87040; 93306; 94762; 97110-GP; 97161-GP; A9270-GY; J0696; J1650; J1815; J3475

== ENCOUNTER 2024-06-13 16:02 | Emergency (ER) | payer MEDICARE, OTHER ==
[2024-06-13] MEDS ORDERED: Sodium Chloride 0.9% 10 ML Syringe FLUSH PRN (16:49)
[2024-06-13 17:56] LABS: BASOPHILS ABSOLUTE AUTO 0.1 K/mm3 (0.0-0.2); BASOPHILS PERCENT AUTO 0.8 % (0.0-1.0); EOSINOPHILS ABSOLUTE AUTO 0.4 K/mm3 (0.0-0.4); EOSINOPHILS PERCENT AUTO 3.1 % (0.0-6.0); IMMATURE GRAN ABSOLUTE AUTO 0.04 K/mm3 (0.00-0.05); IMMATURE GRAN PERCENT AUTO 0.3 % (0.0-0.4); LYMPHOCYTES ABSOLUTE AUTO 0.9 K/mm3 (1.0-4.8); LYMPHOCYTES PERCENT AUTO 7.6 % (24.0-44.0); MEAN CORPUSCULAR HEMOGLOBIN 30.1 pg (28.0-32.0); MEAN CORPUSCULAR HGB CONC 33.3 g/dl (32.0-36.0); MEAN CORPUSCULAR VOLUME 90.4 fl (83.0-99.0); MONOCYTES ABSOLUTE AUTO 0.9 K/mm3 (0.0-0.8); MONOCYTES PERCENT AUTO 8.1 % (0.0-8.0); NEUTROPHILS ABSOLUTE AUTO 9.2 K/mm3 (1.8-7.7); NEUTROPHILS PERCENT AUTO 80.1 % (41.0-71.0); PLATELET COUNT,PLT 417 K/mm3 (150-400); RED BLOOD CELL COUNT 3.65 M/mm3 (4.10-5.30); WHITE BLOOD CELL COUNT,WBC 11.47 K/mm3 (3.9-11.3)
[2024-06-13 18:15] LABS: INR 1.02; PROTHROMBIN TIME 10.8 SECONDS (9.7-12.0)
[2024-06-13 18:16] LABS: PTT,PARTIAL THROMBOPLSTIN TIME 23.6 SECONDS (21.7-31.4)
[2024-06-13 18:28] LABS: ALBUMIN 3.8 g/dl (3.4-5.0); ANION GAP 13.1 (5-15); BILIRUBIN TOTAL 0.6 mg/dL (0.2-1.0); CALCIUM 9.4 mg/dL (8.5-10.1); CREATININE 1.3 mg/dL (0.55-1.02); EST CRCL DRUG DOSING (CG) 28.55 mL/min; POTASSIUM,K 3.1 mEq/L (3.5-5.1); PROTEIN TOTAL,TP 7.5 g/dl (6.4-8.2)
== END 2024-06-13 19:10 | disposition home or self-care (01) ==
LOC: JD.ED 16:02
DX: N93.9 Abnormal uterine and vaginal bleeding, unspecified (principal); R19.00 Intra-abdominal and pelvic swelling, mass and lump, unspecified site; I10 Essential (primary) hypertension; E11.9 Type 2 diabetes mellitus without complications; Z90.710 Acquired absence of both cervix and uterus; Z79.899 Other long term (current) drug therapy; Z88.6 Allergy status to analgesic agent; Z79.84 Long term (current) use of oral hypoglycemic drugs
CPT/HCPCS: 36415; 80053; 85025; 85610; 85730; 99284; A9270